=== PATIENT | female | born 1940 | race Caucasian/White ===

== ENCOUNTER → 2018-04-24 13:31 | Outpatient (CLI) | payer SELFPAY ==
--- NOTE | 2018-04-24 13:57 | RAD_ITS ---
STUDY: X-RAY CHEST REASON FOR EXAM: Female, 77 years old. Increasing shortness of breath on exertion. TECHNIQUE: PA and lateral views of the chest. COMPARISON: None. FINDINGS: PICC 3 there is no focal mass or infiltrate. There is no demonstrated pleural abnormality. Normal size heart. Normal mediastinum and sven. Normal visualized pulmonary arteries. There is atherosclerotic calcification of the aortic arch with tortuosity. There is mild degenerative changes of the thoracic spine. Normal visualized ribs, clavicles, and shoulders. There is no demonstrated abnormality of the visualized soft tissue structures of the upper abdomen. RAD/Chest PA and Lateral IMPRESSION: Probable COPD. Electronically Signed: Odilon Ortiz DO at 17:51 EDT Tel [phone], Service support ,
[2018-04-24 14:55] LABS: Absolute Lymphocyte Count 2.34 X10^3/ul (0.83-4.51); Absolute Neutrophil Count 3.6 X10^3/uL (2.0-7.7); Basophil# 0.06 X10^3/uL; Basophil% 0.8 % (0-1); Eosinophil# 0.43 X10^3/uL; Eosinophils% 6.1 % (0-5); Hematocrit 39.1 % (37-47); Hemoglobin 12.7 g/dl (12.0-15.0); Lymphocyte # 2.34 X10^3/ul (4.0); Lymphocyte % 33.1 % (19-41); Mean Corp Hgb Conc 32.5 g/gl (32-36); Mean Corpuscular Hgb 31.6 pg (27.0-32.0); Mean Corpuscular Volume 97.3 fL (81-99); Mean Platelet Vol. 10.8 fl (6.2-12.0); Monocyte# 0.66 X10^3/uL; Monocyte% 9.3 % (0-10); Neutrophil # 3.59 X10^3/uL (2.7-7.7); Neutrophil % 50.7 % (47-70); Platelet Count 251 K/mm3 (150-450); RBC Distribution Width CV 13.9 % (11.6-14.6); RBC Distribution Width SD 48.4 fl (35.1-43.9); Red Blood Count 4.02 M/mm3 (4.2-5.4); White Blood Count 7.1 K/mm3 (4.4-11.0)
[2018-04-24 14:59] LABS: POSITIVE COUNT NO; POSITIVE DIFFERENTIAL NO; POSITIVE MORPHOLOGY NO
[2018-04-24 15:12] LABS: Anion Gap 5 (5-15); BUN 34 mg/dL (7-18); BUN/Creat Ratio 31.2 RATIO (10-20); Calcium,Total 8.3 mg/dL (8.5-10.1); Chloride 108 mmol/L (98-107); Creatinine, Serum 1.09 mg/dL (0.55-1.02); EST Glomerular Filtration Rate 52 mL/min (>60); Est Glom Filt Rate - Afr Amer 63 mL/min (>60); Glucose 87 mg/dL (74-106); Potassium 4.5 mmol/L (3.5-5.1); Sodium Level 138 mmol/L (136-145)
[2018-04-24 15:18] LABS: BNP,B-Type NATRIURETIC PEPTIDE 52.5 pg/mL (0-100)
== END ==
PROVIDERS: Family Provider Internal Medicine; PCP Internal Medicine; Referring Provider Internal Medicine; Visit Provider Internal Medicine
DX: R06.09 Other forms of dyspnea (principal)
CPT/HCPCS: 36415; 71046; 80048; 83880; 85025

== ENCOUNTER 2018-06-26 07:37 | Day surgery (SDC) | payer SELFPAY ==
[2018-06-19 15:05] VITALS: BMI 27.7
--- NOTE | 2018-06-19 16:12 | HP_ITS ---
HPI HPI History of Present Illness Surgical H&P: Yes Details: This is a 77-year-old white female who presents today for outpatient cardiovascular consultation based on concerns of chest pain, shortness of breath/dyspnea, fatigue, 3 of an underlying cardiomyopathy aced upon an echocardiographic study performed in 2014, CHF , superimposed upon a history of underlying COPD. It appears that she has been undergoing evaluation in the past for multiple symptoms. Her chest pain is described as sharp in her chest. It comes and goes. It may occur at night. According to her daughter, who was at [facility] RN, she states that this can be sometimes relieved with antacid therapy. She also has shortness of breath and dyspnea. This is more prominent when she exerts herself especially with respect to going up any type of incline. However it is not uncommon, even on flat surfaces, after a period of time she will have to stop and rest to breathe. She has not had classic orthopnea or PND. Apparently she is had waxing and waning lower extremity peripheral pitting edema. She states that she is tired and fatigued. She notes that this may be even more concerning at times and her chest pain and her shortness of breath/dyspnea. She states that she still is able to clean her own home but this has to be done in the morning because by the time the afternoon, she is tired and fatigued and has to sit in her recliner. She also notes this symptom has been progressively getting worse over time. She did have an ECG today. She was noted to be in sinus rhythm. She had a leftward axis. She had a transthoracic echocardiogram performed at an outside hospital in September 2014. At that time according to the report the left ventricle was reported as mildly globally dysfunctional with an LVEF 45% with mild concentric LVH with findings of mild mitral annular calcification with mild diffuse mitral valve thickening and mild mitral valve prolapse of the posterior leaflet with mild mitral valve insufficiency, trivial TR, aortic valve sclerosis with trivial AI, trivial PA, and an estimated RV systolic pressure 20 mmHg. She had evidence of decreased diastolic compliance. She had a pharmacologic stress nuclear imaging study performed in October 2016. At that time according to reports she had no evidence of significant inducible ischemia or prior myocardial infarction with normal ejection fraction of greater than 70% with normal wall motion and breast tissue attenuation artifact noted. She states she is also been diagnosed with COPD. Apparently there have been PFTs performed in the past. She has not been evaluated by pulmonology. Intake Vital Signs 06/19/18 Height 5 ft 6 in 06/19/18 Weight: 172 lb 06/19/18 Body Mass Index (BMI) 27.7 06/19/18 Blood Pressure 128/72 H 06/19/18 Blood Pressure Location Lt brachial 06/19/18 Blood Pressure Position Sitting 06/19/18 Respiratory Rate 18 06/19/18 Pulse Rate 64 06/19/18 Pulse Source Auscultation Intake Visit Reasons: ABN EKG/Ref. [facility] [employer] Required: No Accompanied by: Daughter Allergies No Known Allergies Allergy (Unverified 06/19/18 15:06) Medications carvedilol 3.125 mg tablet 3.125 mg PO BID 06/13/18 [History Confirmed 06/19/18] furosemide 20 mg tablet 20 mg PO DAILY 06/13/18 [History Confirmed 06/19/18] lisinopril 5 mg tablet 5 mg PO DAILY 06/13/18 [History Confirmed 06/19/18] aspirin 81 mg tablet,delayed release 81 mg PO DAILY #30 tab 06/19/18 [Rx Confirmed 06/19/18] clopidogrel 75 mg tablet 75 mg PO DAILY #30 tab 06/19/18 [Rx Confirmed 06/19/18] PFSH Medical History CHF (congestive heart failure) (Acute) Asthma (Acute) COPD (chronic obstructive pulmonary disease) (Chronic) Surgical History History of breast surgery (Resolved) Family History Father CAD (coronary artery disease) Mother CHF (congestive heart failure) Brother Hypertension Heart disease Social History Smoking Status: Never smoker alcohol intake: never substance use type: does not use caffeine: Yes Type: coffee Number of servings: 1 ROS Const Const: Positive for fatigue; negative for weakness, frequent falls, excessive sweating, weight gain or weight loss Eyes Eyes: Negative for transient loss of vision, blurry vision or change in vision ENT ENT: Negative for dizziness or balance problems Cardio Chest Pain: Yes Character: sharp Location: mid sternal Duration: brief Palpitations: No Edema: Bilateral (occasional, mild) Muscle aches with walking: None Resp Respiratory: Positive for SOB with activity (baseline), SOB at rest (occasional) and Cough (dry) GI GI: Negative vomiting or vomiting blood/hematemesis : Negative for hematuria Musc Musc: Negative for muscle aches/ myalgia, muscle weakness, joint pain or balance problems Skin Skin: Negative non-healing lesions or rash Neuro Neuro: Positive for lightheadedness (occasional while up and about); negative for dizziness, orthostatic symptoms, frequent falls, weakness or blurry vision Srinivas Hematologic/Lymphatic: Negative for easy bleeding Endo Endo: Positive for fatigue; negative for excessive sweating Psych Psych: Negative for anxiety or depression Allergy Allergy/Immunology: Negative for hives, Negative for rash Cardiology Exam Const Appearance: cooperative, healthy appearing, comfortable, well developed and well groomed Nutritional Appearance: overweight Orientation: alert, awake and oriented x3 Head Head: normal to inspection, normocephalic and atraumatic Ears: hearing grossly normal bilaterally Nose: external nose normal Face and Sinus: face symmetric Mouth: oral mucosae normal Teeth and gingiva: fair dentition Eyes Eyelids: eyelids normal Conjunctivae: conjunctivae normal Pupils: PERRL EOM: EOM intact bilaterally Neck Neck: normal visual inspection and full ROM Carotids: normal carotid upstroke Chest Chest inspection: normal inspection of the chest, symmetric chest movement and normal respiratory effort Auscultation: Bilateral: Clear to Auscultation Cardio Palpation: normal PMI Rate: regular rate Rhythm: regular rhythm Heart sounds: S1 normal and S2 normal Murmur: Grade 2/6, soft, mid systolic, LLSB and LVOT GI GI: normal to inspection, soft and bowel sounds present Neuro General: alert, awake, oriented x3, gait normal and moves all extremities Skin Skin: no rashes or lesions noted Extremities Pulses: Normal: Right Radial Pulse, Left Radial Pulse Lower Extremity Edema: Trace: Bilateral Psych Psychological: normal affect Assessment & Plan 1. Chronic systolic congestive heart failure I50.22 Plan She has been diagnosed with CHF in the past. Based upon her echocardiogram this would be considered systolic mediated although there may be a combination of diastolic component and it appears to be chronic. She has not been reassessed since 2014 with a follow-up echocardiogram. She states she was placed on the medications listed above with respect to her beta-jody, diuretic, and KATIA inhibitor following her echocardiographic study. She does not appear to be acutely volume overloaded. She will have follow-up evaluation. This will include a follow-up transthoracic echocardiogram to reassess her ventricular wall motion and systolic function. 2. Cardiomyopathy, unspecified type I42.9 Plan Again she does have an underlying cardiomyopathy. The etiology is unclear as to whether this is coronary related or noncoronary related. Her pharmacologic stress nuclear imaging study would suggest this is noncoronary related. However she goes on with symptoms with chest discomfort, which is somewhat atypical, but more concerning her dyspnea on exertion and her marked fatigue. Thus at the present time she will continue medical therapy. Based upon the above clinical scenario it was felt she should be further evaluated at this time with respect to her underlying cardiovascular status from a more definitive standpoint with diagnostic cardiac catheterization. This could include a right/left cardiac cath based upon her symptoms, findings of a cardiomyopathy, etc. Depending upon her findings she may or may not need further cardiac versus noncardiac evaluation and care. Orders Orders: Left Heart Cath/COR/LV Percut Today Echo Complete Today Basic Metabolic Profile (BMP) Today Partial Thromboplast Time Today Prothrombin Time w/INR Today CBC W/Diff, Automated Today Thyroid Stim Hormone (TSH) Today Lipid Profile Today Liver Profile Today 3. Mitral valve disorder I05.9 Plan She does have a history of mitral valve prolapse/MR based on her previous echocardiographic studies. At the present time this will be reassessed with a follow-up transthoracic echocardiogram to look for any significant change will be contributing to her symptoms, etc. 4. Chest pain, unspecified type R07.9 Plan Her chest pain appears to be somewhat atypical. Her previous pharmacologic stress test appears to be unremarkable with respect of underlying CAD. However based upon her ongoing symptoms and her other concerns she will undergo more definitive evaluation with diagnostic cardiac catheterization as noted above. Orders Orders: Left Heart Cath/COR/LV Percut Today Echo Complete Today Basic Metabolic Profile (BMP) Today Partial Thromboplast Time Today Prothrombin Time w/INR Today CBC W/Diff, Automated Today Thyroid Stim Hormone (TSH) Today Lipid Profile Today Liver Profile Today 5. Dyspnea on exertion R06.09 Plan She does have marked dyspnea on exertion. Again there would be concern as to whether this is related to underlying CAD and/or LV systolic dysfunction. At the same time she is been diagnosed with valvular heart disease and has not been reassessed for any significant changes. She also has underlying COPD. Thus this may be a contribute in factor. At the present time she will continue her medical management. She will proceed with noninvasive and invasive evaluation as noted above from a cardiac standpoint. Depending upon her findings she may need further formal pulmonary evaluation as well. Orders Orders: Left Heart Cath/COR/LV Percut Today Echo Complete Today Basic Metabolic Profile (BMP) Today Partial Thromboplast Time Today Prothrombin Time w/INR Today CBC W/Diff, Automated Today Thyroid Stim Hormone (TSH) Today Lipid Profile Today Liver Profile Today 6. Fatigue, unspecified type R53.83 Plan She is fatigued. She states this may be the biggest concern she has. It is progressing and getting worse. She has been evaluated laboratory studies which were unremarkable for anemia, renal failure, or electrolyte dysfunction. Her daughter states she has had thyroid studies in the past which have been unremarkable. At the present time she will be further assessed with follow-up laboratory studies including thyroid function studies. She will also be asked to have the echocardiogram to reassess her ventricular wall motion and systolic function as well as her valvular heart disease. She will also undergo evaluation with diagnostic cardiac catheterization for the possibility of underlying CAD not being detected on her previous pharmacologic stress nuclear imaging study. Again depending upon her findings she may or may not need further cardiac versus noncardiac evaluation. Plan Detail Other Orders Orders: 12 Lead EKG performed by [facility] Today I50.9 Left Heart Cath/COR/LV Percut Today I50.9 Echo Complete Today I50.9 Basic Metabolic Profile (BMP) Today I50.9 Partial Thromboplast Time Today I50.9 Prothrombin Time w/INR Today I50.9 CBC W/Diff, Automated Today I50.9 Thyroid Stim Hormone (TSH) Today I50.9 Lipid Profile Today I50.9 Liver Profile Today I50.9 Other Medications New: aspirin 81 mg PO DAILY 30 tabs 3RF clopidogrel (Plavix) 75 mg PO DAILY 30 tabs 3RF Additional Comments The cardiac catheterization procedure with respect risks and benefits were discussed with the patient as well. Again she was agreeable to this approach. The above was discussed with the patient's daughter who was present. She was agreeable to this approach as well. Thank you for allowing me to participate in the care of your patient. Please don't hesitate to call if any issues arise. This note was generated using a voice recognition system and there may be incorrect words, spelling or punctuation that were not noted when reviewing the office note prior to saving. Follow Up 3 Months (PFM) Coding Level of Care Code Off vis,new,level 5 Diagnoses Chronic systolic congestive heart failure I50.22 ??Heart failure type: systolic ??Heart failure chronicity: chronic Cardiomyopathy, unspecified type I42.9 ??Cardiomyopathy type: unspecified Mitral valve disorder I05.9 Chest pain, unspecified type R07.9 ??Chest pain type: unspecified Dyspnea on exertion R06.09 Fatigue, unspecified type R53.83 ??Fatigue type: unspecified Coding Level of Care Code Off vis,new,level 5 Diagnoses Chronic systolic congestive heart failure I50.22 ??Heart failure type: systolic ??Heart failure chronicity: chronic Cardiomyopathy, unspecified type I42.9 ??Cardiomyopathy type: unspecified Mitral valve disorder I05.9 Chest pain, unspecified type R07.9 ??Chest pain type: unspecified Dyspnea on exertion R06.09 Fatigue, unspecified type R53.83 ??Fatigue type: unspecified Supplemental Info Supplemental Information Diagnostics Electrocardiogram 06/19/18 Chest X-Ray 04/24/18 06/19/18 1612 <Electronically signed by Slava Leyva MD> Date Slava Leyva MD I have re-examined the patient. There are no clinical changes since date of exam.
[2018-06-25 11:04] VITALS: BMI 27.7
[2018-06-26 09:31] LABS: Base Excess -4 mmol/L (-2 to +2); Bicarbonate 20.4 mmol/L (22-26); Blood Gas Specimen Type ART; PO2 78 mmHG (75-100); SO2 96 % (95-99); Total Carbon Dioxide 21 mmol/L; pCO2 33.1 mmHg (35-45)
[2018-06-26 09:31] LABS: Blood Gas Specimen Type VEN; VBG BASE EXCESS -3 mmol/L (-1.0-3.5); VBG Bicarbonate 22 mmol/L (22-26); VBG Oxygen Content 24 mmol/L (23-33); VBG PO2 40 mmHg (25-40); VBG SO2 73 % (50-70); VBG pCO2 39.7 mmHg (41-51); VBG pH 7.36 (7.32-7.42)
[2018-06-26 09:31] LABS: Blood Gas Specimen Type VEN; VBG BASE EXCESS -3 mmol/L (-1.0-3.5); VBG Bicarbonate 23 mmol/L (22-26); VBG Oxygen Content 24 mmol/L (23-33); VBG PO2 39 mmHg (25-40); VBG SO2 70 % (50-70); VBG pH 7.35 (7.32-7.42)
[2018-06-26 09:31] LABS: Blood Gas Specimen Type VEN; VBG BASE EXCESS -3 mmol/L (-1.0-3.5); VBG Bicarbonate 23 mmol/L (22-26); VBG Oxygen Content 24 mmol/L (23-33); VBG PO2 45 mmHg (25-40); VBG SO2 80 % (50-70); VBG pCO2 39.2 mmHg (41-51); VBG pH 7.37 (7.32-7.42)
--- NOTE | 2018-06-26 09:49 | CL.D_ITS ---
Patient Name: NATALY MARTINEZ Study Date: 06/26/2018 Performing: Slava Leyva MD Ht: 66.14 inches 168 cm : 1940 Wt: 171.96 lbs 78 kg Age: 77 Gender: female BSA: 1.88 PROCEDURE(S) PERFORMED CT56-HAF/LHC/COR/LV CLINICAL PROFILE AND INDICATIONS Indications: Valvular Disease, LV Dysfunction, Cardiomyopathy Heart Failure: NYHA Class: 3, Newly Diagnosed: No, Heart Failure Type: Systolic Stress/Imaging Stress/Image Study Performed: No Angina Classification Anginal Classification w/in 2 Weeks: CCS III CAD Presentations: Other: shortness of breath / dyspnea on exertion CONCLUSIONS Right heart pressures - mildly elevated The patient has pulmonary hypertension which is mild. Intracardiac shunting: None Elevated Left Ventricular End Diastolic Pressure Normal LV size, wall motion,and systolic function LVEF: by LV gram 55 % Normal coronary arteries RECOMMENDATIONS Risk factor modification Medical therapy DESCRIPTION OF PROCEDURE The patient arrived to the procedure lab. The risks and benefits of the procedure as well as a full d escription of our services here and current unavailability of surgical backup were fully explained to the patient and/or their significant other prior to the catheterization. The Timeout was completed, verifying the correct patient and procedure. The patient's procedural site was prepped and draped in the usual fashion. Local anesthetic was given subcutaneously to right groin region with Lidocaine 2%. Using a modified Seldinger technique, arterial access was obtained via the right femoral artery, a 4 Fr sheath was inserted Venous access was obtained via the right femoral vein, a 7Fr sheath was insert ed. A 7Fr thermal dilution catheter was inserted and right heart pressures were recorded, it was then advanced to PA position for cardiac outputs. Thermal dilution cardiac outputs were then recorded. O2 saturations were then obtained. Simultaneous pressures were then recorded. Left Ventriculography was performed in ALEXANDER projection using a 4 Fr. Pigtail catheter. LV to AO pullback pr essures were then recorded. The Thermal dilution catheter was then removed. Left Coronary Artery jaqueline ctive angiography was performed in multiple views using a 4 Fr. JL5 catheter. Right Coronary Artery s elective angiography was then performed in multiple views using a 4 Fr. 3DRC catheter.The arterial sh eath was pulled and manual compression applied until hemostasis is achieved.. The venous sheath was t hen pulled and manual compression applied until hemostasis achieved CORONARY ANGIOGRAPHY DOMINANCE: Right Dominant LEFT HEART ASSESSMENT Left Ventricular Ejection Fraction: by LV Gram 55 % Normal LV wall motion Elevated Left Ventricular End Diastolic Pressure LVEDP: 28 mmHg RIGHT HEART ASSESSMENT Thermal CO: 5.44 Thermal CI: 2.89 Denys CO: 8.77 Denys CI: 4.66 PW: 13/11 10 PA: 33/13 22 RV: 37/3 9 RA: 10/17 5 PVR: 176 SVR: 1632 Aortic Valve Area: >3.50 Aortic Valve Index: 1.86 Aortic Valve Mean Gradient: 4.3 Mitral Valve Area: 3.40 Mitral Valve index: 1.81 Mitral Valve Mean Gradient: 10 Right Heart pressures - elevated Pulmonary Hypertension Mild Intracardiac shunting: None LEFT MAIN: Angiographically normal LEFT ANTERIOR DESCENDING ARTERY: Angiographically normal CIRCUMFLEX ARTERY: Angiographically normal RIGHT CORONARY ARTERY: Angiographically normal VALVE FINDINGS: Normal Aortic Valve function Normal Mitral Valve function AORTIC ROOT: Angiographically normal COMPLICATIONS No Complications PROCEDURE MEDICATIONS Versed 1 mg IV SUMMARY OF HEMODYNAMIC DATA Time AIR REST ECG 08:26:07 RA 10/17 (5) SV 09:07:43 RV 37/3, 9 09:08:04 PW 13/11 (10) PV 09:09:15 PA 33/13 (22) PA 09:09:29 LV 178/-2, 26 09:15:40 PW 19/16 (14) 09:15:40 LV 177/11, 28 09:17:22 PW 17/19 (16) 09:17:22 LV 178/12, 27 09:17:34 LV 179/10, 27 09:17:40 LVp 179/9, 26 09:17:46 AOp 181/84 (125) 09:17:51 PA 41/16 (27) 09:18:13 RV 43/5, 12 09:18:29 RA 01/19 (8) 09:18:44 AO 174/78 (116) SA 09:21:08 09:48:26 Valve Area (c P-P/ms Time AIR REST Mitral 3.39 10.0 mn/160 ms 09:15:40 Aortic 3.50 4.3 mn/98 ms 09:17:46 Type SV CO (l/m) CI (l/m/ HR Time AIR REST Thermal 87.70 5.44 2.89 62 08:26:07 Denys 141.50 8.77 4.66 62 08:26:07 Label % O2 Pres/Loc Time AIR REST AO 96 PV 09:22:20 PA 73 PA 09:22:27 SVC 70 09:22:32 IVC 80 SV 09:22:35 Signed By Slava Leyva MD On 06/26/2018 9:48:36 AM Slava Leyva MD
== END 2018-06-26 14:10 | disposition home or self-care (01) ==
PROVIDERS: Family Provider Internal Medicine; PCP Internal Medicine; Referring Provider Internal Medicine Cardiovascular Disease; Visit Provider Internal Medicine Cardiovascular Disease
DX: I50.22 Chronic systolic (congestive) heart failure (principal); I42.9 Cardiomyopathy, unspecified; I05.9 Rheumatic mitral valve disease, unspecified; R07.89 Other chest pain; R06.09 Other forms of dyspnea; J44.9 Chronic obstructive pulmonary disease, unspecified; R53.83 Other fatigue; I27.20 Pulmonary hypertension, unspecified; Z79.82 Long term (current) use of aspirin; Z79.899 Other long term (current) drug therapy; Z82.49 Family history of ischemic heart disease and other diseases of the circulatory system
CPT/HCPCS: 82803; 93460; 99152; 99153; J7040; Q9967; A4216; C1751; C1769; C1894

== ENCOUNTER → 2018-07-04 12:56 | Outpatient (CLI) | payer SELFPAY ==
[2018-06-19 15:05] VITALS: BMI 27.7
[2018-06-25 11:04] VITALS: BMI 27.7
--- NOTE | 2018-07-04 13:01 | ECHOD_ITS ---
Reason For Study: CHEST PAIN Procedure This was a 2D Doppler, Color Flow transthoracic echocardiogram. The study was technically difficult. Exam performed in department. Left Ventricle Normal LV size. Left ventricular systolic function is normal. The estimated ejection fraction is 60 %. Diastolic function is indeterminate. No regional wall motion abnormalities noted. Right Ventricle Normal RV size. Normal systolic function. Atria The left atrium is mildly enlarged. Normal right atrium. No doppler evidence for ASD. Bubble contrast study negative for right to left interatrial shunt. Mitral Valve There is no mitral annular calcification. Normal mitral valve. Trivial mitral valve insufficiency. Tricuspid Valve Normal tricuspid valve. Trivial tricuspid valve insufficiency. Right ventricular systolic pressure estimated to be 29 mmHg. Aortic Valve Trisinus/trileaflet aortic valve. Mild focal aortic valve thickening. Pulmonic Valve The pulmonic valve is not well visualized. Great Vessels Normal sized aortic root. Pericardium/Pleural No pericardial effusion. Medication 22 gauge I.V. with prn adaptor inserted into right arm. Performed a rapid injection of agitated mix of 9 cc saline and 1cc air to assess for atrial septal defect. MMode/2D Measurements & Calculations LVIDd: 3.5 cm IVSd: 1.0 cm Ao root diam: 3.3 cm LVIDs: 2.5 cm LVPWd: 1.1 cm FS: 29.0 % LAV(MOD-bp): 39.8 ml LVAd ap4: 23.1 cm2 SV(MOD-sp4): 39.6 ml LAV(MOD-bp) Indexed: 21.2 ml/m2 EDV(MOD-sp4): 64.6 ml LAV(MOD-sp2): 43.4 ml EDV(sp4-el): 68.7 ml LAV(MOD-sp4): 33.0 ml LVAs ap4: 12.8 cm2 ESV(MOD-sp4): 25.0 ml ESV(sp4-el): 25.4 ml EF(MOD-sp4): 61.3 % EF(sp4-el): 63.0 % SV(sp4-el): 43.3 ml LA A4 area: 13.6 cm2 LA dimension(2D): 2.8 cm RA A4 area: 8.6 cm2 Time Measurements MV dec time: 0.34 sec Doppler Measurements & Calculations MV E max daron: 68.6 cm/sec Lat Peak E' Daron: 5.2 cm/sec Med Peak E' Daron: 6.0 cm/sec MV A max daron: 100.9 cm/sec E/E' lat: 13.3 E/E' med: 11.4 MV E/A: 0.68 Ao V2 max: 132.8 cm/sec LV V1 max: 132.3 cm/sec PA V2 max: 89.4 cm/sec Ao max P.1 mmHg LV V1 max P.0 mmHg TR max daron: 255.6 cm/sec TR max P.2 mmHg Interpretation Summary The study was technically difficult. Left ventricular systolic function is normal. The estimated ejection fraction is 60 %. The left atrium is mildly enlarged. Trivial mitral valve insufficiency. Trivial tricuspid valve insufficiency. Mild focal aortic valve thickening. Right ventricular systolic pressure estimated to be 29 mmHg. Diastolic function is indeterminate. Ordering Physician: Slava Leyva Referring Physician: TRACI JEFFERY Performed By: Bell Steinberg RDCS
== END ==
PROVIDERS: Family Provider Internal Medicine; PCP Internal Medicine; Referring Provider Internal Medicine Cardiovascular Disease; Visit Provider Internal Medicine Cardiovascular Disease
DX: R07.9 Chest pain, unspecified (principal); R06.09 Other forms of dyspnea; I42.9 Cardiomyopathy, unspecified; I50.9 Heart failure, unspecified
CPT/HCPCS: 93306; A4216

== ENCOUNTER 2022-02-19 08:28 | Inpatient (IN) | payer OTHER, SELFPAY ==
[2022-02-19] VITALS (12 sets, daily range): BP systolic 125–166; BP diastolic 69–89; PULSE 59–138; RESP 14–20; TEMP 36.4–36.8; O2SAT 96–98; BMI 27.8; BMI 28.0
--- NOTE | 2022-02-19 08:32 | EDS_ITS ---
HPI History of Present Illness Chief Complaint: Stroke Alert Narrative Narrative: 81-year-old female here with acute onset of right upper extremity weakness and numbness started approximately 7:05 AM, 1 hour and 20 minutes prior to arrival. Patient denies falls. Denies blood thinning medicines, denies history of stroke. [facility] Medical History Asthma CHF (congestive heart failure) COPD (chronic obstructive pulmonary disease) Status post left heart catheterization (LHC) (~06/26/18) Home Medications carvedilol 3.125 mg tablet 3.125 mg PO BID heart 06/13/18 [History Last Taken 02/19/22] furosemide 20 mg tablet 20 mg PO DAILY fluid 06/13/18 [History Last Taken 02/19/22] lisinopril 5 mg tablet 5 mg PO DAILY blood pressure 06/13/18 [History Last Taken 02/18/22] acetaminophen 500 mg tablet 500 mg PO DAILY PRN Pain 02/19/22 [History Last Taken Unknown] aspirin 81 mg tablet,delayed release 162 mg PO DAILY PRN heart health 02/19/22 [History Last Taken 02/19/22] Allergy/AdvReac Type Severity Reaction Status Date / Time No Known Allergies Allergy Unverified 06/19/18 15:06 Family History Father CAD (coronary artery disease) Mother CHF (congestive heart failure) Brother Hypertension Heart disease Surgical History History of breast surgery Social History (Updated 06/19/18 @ 16:[address] Slava Leyva MD) Smoking Status: Never smoker alcohol intake: never substance use type: does not use caffeine: Yes Type: coffee Number of servings: 1 ROS ROS ED ROS Narrative Constitutional: Denies fever HEENT: Denies sore throat Neck: Denies neck pain Cardiovascular: Denies chest pain, syncope Respiratory: Denies shortness of breath GI: Denies nausea vomiting or abdominal pain : Denies changes in urinary habits Musculoskeletal: Denies muscle or joint pain Neurologic: Denies numbness weakness or loss of sensation Skin denies rash EXAM Physical Exam Narrative Exam Narrative: Nursing triage notes reviewed, Vital signs reviewed Constitutional: please see mdm HENT: MMM Eyes: Pupils equal round and reactive to light, Extraocular muscles intact Neck: No stridor, no JVD, full neck ROM Lungs: Clear to auscultation, No wheezing or rales. No increased work of breathing, no conversational dyspnea, no accessory muscle use, no nasal flaring. No respiratory distress noted Heart: Regular rate and rhythm, No murmurs, No rubs and No gallops, 2+ distal pulses (radial, femoral, posterior tibial) in all extremities Abdomen: Soft, there is no tenderness, rigidity, rebound or guarding, no obvious peritoneal signs, no palpable pulsatile abdominal masses, no auscultated abdominal bruit : No CVAT Extremities: No edema Neuro: Not at baseline, cranial nerves II through XII intact, weakness in the right upper extremity with pronator drift, decree sensation right upper extremity. No other sensory or motor deficits noted. No slurred speech or facial drooping. Patient was alert and orient x3 and follow commands. Initial NIH of 2 (right upper arm drift, decreased sensation right upper arm) Skin: No rash or lesions noted Const Vital Signs: 02/19/22 08:30 02/19/22 08:49 02/19/22 08:51 Temperature 98.1 F Temperature Source Temporal Pulse Rate 81 116 H 138 H Respiratory Rate 16 20 H 20 H Blood Pressure 166/89 H 135/89 H 135/89 H Blood Pressure Mean 114 104 104 Blood Pressure Source Blood Pressure Position Blood Pressure Location Pulse Ox 97 96 96 Oxygen Delivery Method Room Air Room Air Room Air 02/19/22 09:19 02/19/22 09:19 02/19/22 09:39 Temperature Temperature Source Pulse Rate 73 62 Respiratory Rate 17 14 Blood Pressure 127/71 H 125/76 H Blood Pressure Mean 89 92 Blood Pressure Source Blood Pressure Position Blood Pressure Location Pulse Ox 97 96 96 Oxygen Delivery Method Room Air Room Air Room Air 02/19/22 10:03 02/19/22 10:04 02/19/22 10:04 Temperature 97.6 F L Temperature Source Temporal Pulse Rate 59 L 59 L Respiratory Rate 18 16 18 Blood Pressure 138/73 H 138/73 H Blood Pressure Mean 94 94 Blood Pressure Source Blood Pressure Position Blood Pressure Location Pulse Ox 96 96 Oxygen Delivery Method Room Air Room Air 02/19/22 10:15 Temperature 98.2 F Temperature Source Temporal Pulse Rate 69 Respiratory Rate 20 H Blood Pressure 159/89 H Blood Pressure Mean 112 Blood Pressure Source Monitor Blood Pressure Position Semi-Fowlers Blood Pressure Location Left Arm Pulse Ox 96 Oxygen Delivery Method Room Air MDM MDM MDM Narrative Medical decision making narrative: Chief Complaint: Right upper extremity weakness External records reviewed: No recent advanced imaging of the brain I considered: CVA, ICH, hypoglycemia, seizure or postictal state, conversion disorder Patient presented with acute right arm weakness and decrease in station the right arm, initial NIH of 2 within the stroke window with a last known well approximately hour 20 minutes prior to arrival at 7:05 AM. Exam done within minutes of ED arrival taken to CT immediately. [id number] glucose obtained and is reassuring. CT scan showed no acute bleed. Discussed with radiologist. Discussed with stroke neurologist as well. Patient's symptoms on the stroke neurologist evaluation were improving had repeat NIH of 1 with very slight drift in right upper extremity. We decided with shared decision-making with the patient and family to forego tPA for now. We will admit the patient for telemetry, risk factor modification MRI as well as neurology consultation as soon as labs and images are final. Factors affecting care: History of COPD, CHF Social determinants of health: Elderly, poor medical knowledge Shared decision making: I will have a discussion with the patient and or visitors regarding risk/benefits of further testing or admission. They will be made aware of of the risk/benefits inherent in this decision they will be given the opportunity to voice understanding. Consults: Stroke neurology recommended against tPA, recommended admission for risk factor modification. Lab Data Attestation: I reviewed the patient's lab results. Lab results narrative: CBC with no leukocytosis, mild anemia, no thrombocytopenia No coagulopathy within normal PT, INR and PTT BMP without significant electrolyte abnormalities, anion gap or acute kidney injury Troponin unremarkable for myocardial ischemia Labs: Laboratory Results - last 24 hr 02/19/22 02/19/22 02/19/22 08:46 08:46 08:46 WBC 5.9 RBC 3.72 L Hgb 11.8 L Hct 35.3 L MCV 94.9 MCH 31.7 MCHC 33.4 RDW Std Deviation 48.4 H RDW Coeff of Bettye 13.9 Plt Count 231 MPV 10.2 Immature Gran % (Auto) 0.300 Neut % (Auto) 55.8 Lymph % (Auto) 27.3 [place] % (Auto) 13.0 H Eos % (Auto) 2.9 Baso % (Auto) 0.7 Absolute Neuts (auto) 3.3 Absolute Lymphs (auto) 1.62 Nucleated RBC % 0 PT 13.8 INR 1.1 APTT 28.1 Sodium 137 Potassium 3.9 Chloride 102 Carbon Dioxide 28.0 Anion Gap 7 BUN 17 Creatinine 0.89 Estim Creat Clear Calc 46.41 Est GFR (MDRD) Af Amer 78 Est GFR (MDRD) Non-Af 65 BUN/Creatinine Ratio 19.1 Glucose 103 Calcium 8.1 L Troponin I High Sens 6 POC Glucose 02/19/22 08:47 WBC RBC Hgb Hct MCV MCH MCHC RDW Std Deviation RDW Coeff of Bettye Plt Count MPV Immature Gran % (Auto) Neut % (Auto) Lymph % (Auto) [place] % (Auto) Eos % (Auto) Baso % (Auto) Absolute Neuts (auto) Absolute Lymphs (auto) Nucleated RBC % PT INR APTT Sodium Potassium Chloride Carbon Dioxide Anion Gap BUN Creatinine Estim Creat Clear Calc Est GFR (MDRD) Af Amer Est GFR (MDRD) Non-Af BUN/Creatinine Ratio Glucose Calcium Troponin I High Sens POC Glucose 103 Radiography Diagnostic Testing: Clinical Impression(s) from Imaging Studies Brain CT 02/19/22 08:33 IMPRESSION: Chronic involutional changes of the brain. N.B. : The above Results were Read Back by Best Singh MD to [place] [place] and understanding confirmed on 02/19/2022 08:48:08 (ET). Electronically Signed: Best Singh MD at 8:49 EST , ADDENDUM: 02/19/22 0856 IMPRESSION: Chronic involutional changes of the brain. N.B. : The above Results were Read Back by Best Singh MD to [place] [place]OCK and understanding confirmed on 02/19/2022 08:48:08 (ET). Electronically Signed: Best Singh MD at 8:49 EST , Chest X-Ray 02/19/22 08:33 IMPRESSION: Stable mild increased markings at the lung bases as well as at the lung apices suggestive of scarring. Electronically Signed: Best Singh MD at 10:05 EST Reading Location ID and State: [facility] / [place] , Service support , Head/Neck CTA 02/19/22 08:34 IMPRESSION: Calcific N.B. : The above Results were Read Back by Best Singh MD to [place] [place] and understanding confirmed on 02/19/2022 09:06:30 (ET). Electronically Signed: Best Singh MD at 9:07 EST Reading Location ID and State: [facility] / [place] , Service support , ADDENDUM: 02/19/22 0914 IMPRESSION: Calcific N.B. : The above Results were Read Back by Best Singh MD to [place] [place] and understanding confirmed on 02/19/2022 09:06:30 (ET). Electronically Signed: Best Singh MD at 9:07 EST Reading Location ID and State: [facility] / [place] , Service support , Chest x-ray was personally viewed by myself shows no evidence of pulmonary edema, pneumonia EKG Initial EKG: Attestation: I personally reviewed and interpreted this EKG as follows: Comments: EKG with normal sinus rhythm, left ax deviation, prolonged QT interval, no obvious STEMI, no atrial fibrillation Discharge Plan Disposition Disposition: Acute Care [facility]
--- NOTE | 2022-02-19 08:33 | EKG12_ITS ---
Test Reason : STROKE TEAM Blood Pressure : / mmHG Vent. Rate : 077 BPM Atrial Rate : 070 BPM P-R Int : 170 ms QRS Dur : 084 ms QT Int : 438 ms P-R-T Axes : 039 -15 078 degrees QTc Int : 495 ms Sinus rhythm with frequent and consecutive Premature ventricular complexes ST & T wave abnormality, consider lateral ischemia Prolonged QT Abnormal ECG Confirmed by ANEESH PAGE, HOWARD ([id number]), advertising editor SHILOH TUCKER ([id number]) on 02/21/2022 10:36:18 AM Referred By: Confirmed By:HOWARD MELENDREZ MD
--- NOTE | 2022-02-19 08:33 | RAD_ITS ---
STUDY: X-RAY CHEST REASON FOR EXAM: Female, 81 years old. Neuro deficit, acute, stroke suspected TECHNIQUE: Single AP portable view of the chest. COMPARISON: Comparison is made with prior examination dated 04/24/2018. FINDINGS: EKG electrodes are seen. Stable mild increased markings at the lung bases as well as the lung apices suggests a mild degree of scarring. There is no demonstrated pleural abnormality. Normal size heart. Normal mediastinum and sven. Normal visualized pulmonary arteries. There is atherosclerotic calcification of the aortic arch with tortuosity. Normal visualized thoracic spine. Normal visualized ribs, clavicles, and shoulders. There is no demonstrated abnormality of the visualized soft tissue structures of the upper abdomen. RAD/Chest 1 View IMPRESSION: Stable mild increased markings at the lung bases as well as at the lung apices suggestive of scarring. Electronically Signed: Best Singh MD at 10:05 EST ,
--- NOTE | 2022-02-19 08:33 | CT_ITS ---
STUDY: CT HEAD STROKE PROTOCOL W/O CONTRAST INJECTION REASON FOR EXAM: Female, 81 years old. Neuro deficit, acute, stroke suspected RADIATION DOSAGE (If Supplied By Facility): CTDIvol = ( 47.06 ) mGy, DLP = ( a 55.03 ) mGycm TECHNIQUE: Transaxial CT imaging of the brain was performed without administration of intravenous contrast material. Individualized dose optimization techniques were used for this CT. COMPARISON: No relevant priors. FINDINGS: Normal soft tissue structures. Normal calvarium. There is mild cerebral atrophy with widening of the extra-axial spaces and ventricular dilatation. There are areas of decreased attenuation within the white matter tracts of the supratentorial brain, consistent with microvascular disease changes. There are small punctate calcifications of the basal ganglia which are seen in the aging brain as a normal variant. Normal brainstem. Normal cerebellum. There is no intracranial hemorrhage. There are no findings of an acute ischemic infarction. Atherosclerotic plaque formation of the cavernous portions of the internal carotid arteries bilaterally. Partial opacification of the ethmoid sinuses. ASPECT score: 10 CT/STROKE Brain/Head without Cont IMPRESSION: Chronic involutional changes of the brain. N.B. : The above Results were Read Back by Best Singh MD to [facility] and understanding confirmed on 02/19/2022 08:48:08 (ET). Electronically Signed: Best Singh MD at 8:49 EST ,
--- NOTE | 2022-02-19 08:34 | CT_ITS ---
STUDY: CTA HEAD AND NECK WITH CONTRAST REASON FOR EXAM: Female, 81 years old. Neuro deficit, acute, stroke suspected RADIATION DOSAGE (If Supplied By Facility): CTDIvol = ( 19.74 ) mGy, DLP = ( 835.94 ) mGycm TECHNIQUE: CT angiography was performed with a multi-detector CT scanner. Data acquisition was obtained from the skull base through the vertex following intravenous administration of IV 100mL [id number]. MIP images were reconstructed from the axial data set. Post-processing of the angiographic images was performed, with multiplanar reformation and 3D reconstruction. Individualized dose optimization techniques were used for this CT. COMPARISON: No relevant priors. FINDINGS: Normal bilateral petrous carotid arteries. There is calcified plaque formation of the right cavernous carotid artery, without a cross-sectional luminal stenosis. There is calcified plaque formation of the left cavernous carotid artery, with a mild stenosis (less than 50%). Normal right A1 segments of the anterior cerebral artery. Normal left A1 segments of the anterior cerebral artery. Normal intact anterior communicating artery (ACOM). Normal bilateral A2 segments of the anterior cerebral arteries. Normal right M1 and M2 segments of the middle cerebral arteries, with a normal M1 bifurcation. Normal left M1 and M2 segments of the middle cerebral arteries, with a normal M1 bifurcation. Normal right posterior communicating artery (PCOM). Normal left posterior communicating artery (PCOM). Normal bilateral vertebral arteries. Normal basilar artery with a normal basilar bifurcation. The visualized bilateral superior cerebellar (SCA) arteries are normal. Normal bilateral P1, P2 and visualized P3 segments of the posterior cerebral arteries. There is no demonstrated aneurysm of the [place]. AORTIC ARCH: There is atherosclerotic calcific plaque formation of the aortic arch and great vessels arising from the aortic arch, without a hemodynamically significant stenosis. There is a normal origin of the brachiocephalic, left common carotid, and left subclavian arteries. RIGHT CAROTID ARTERIES: Normal right common carotid artery (CCA). Normal right common carotid bulb. There is mild atherosclerotic plaque formation of the origin of the right internal carotid artery with less than 50% cross sectional diameter stenosis. Normal visualized cervical portion of the right internal carotid artery. Normal origin of the right external carotid artery (ECA). LEFT CAROTID ARTERIES: Normal left common carotid artery (CCA). Normal left common carotid bulb. There is extensive atherosclerotic plaque formation of the origin of the left internal carotid artery with an estimated stenosis of greater than 70%. Normal visualized cervical portion of the left internal carotid artery. Normal origin of the left external carotid artery (ECA). VERTEBRAL ARTERIES: Greater than 70% narrowing at the origin of the left internal carotid artery. Less than 50% narrowing at the origin of the right internal carotid artery. CT/STROKE CTA Head AND Neck W/Con IMPRESSION: Calcific N.B. : The above Results were Read Back by Best Singh MD to [place] [place] and understanding confirmed on 02/19/2022 09:06:30 (ET). Electronically Signed: Best Singh MD at 9:07 EST ,
[2022-02-19 08:59] LABS: Absolute Lymphocyte Count 1.62 X10^3/uL (0.83-4.51); Absolute Neutrophil Count 3.3 X10^3/uL (2.0-7.7); Basophil# 0.04 X10^3/uL; Basophil% 0.7 % (0-1); Eosinophil# 0.17 X10^3/uL; Eosinophils% 2.9 % (0-5); Hematocrit 35.3 % (37-47); Hemoglobin 11.8 g/dL (12.0-15.0); Lymphocyte # 1.62 X10^3/ul (0.83-4.51); Lymphocyte % 27.3 % (19-41); Mean Corp Hgb Conc 33.4 g/dL (32-36); Mean Corpuscular Hgb 31.7 pg (27.0-32.0); Mean Corpuscular Volume 94.9 fL (81-99); Mean Platelet Vol. 10.2 fl (6.2-12.0); Monocyte# 0.77 X10^3/uL; NRBC Flagged by Analyzer 0 % (0-5); Neutrophil # 3.32 X10^3/uL (2.7-7.7); Neutrophil % 55.8 % (47-70); Platelet Count 231 K/mm3 (150-450); RBC Distribution Width CV 13.9 % (11.6-14.6); RBC Distribution Width SD 48.4 fl (35.1-43.9); Red Blood Count 3.72 M/mm3 (4.2-5.4); White Blood Count 5.9 K/mm3 (4.4-11.0)
[2022-02-19 09:06] LABS: Partial Thromboplast Time 28.1 Seconds (24.1-36.2)
[2022-02-19 09:10] LABS: Bedside Glucose 103 mg/dL (74-106)
[2022-02-19 09:14] LABS: Anion Gap 7 (5-15); BUN 17 mg/dL (7-18); BUN/Creat Ratio 19.1 RATIO (10-20); Calcium,Total 8.1 mg/dL (8.5-10.1); Chloride 102 mmol/L (98-107); Creatinine, Serum 0.89 mg/dL (0.55-1.02); EST Glomerular Filtration Rate 65 mL/min (>60); Est Glom Filt Rate - Afr Amer 78 mL/min (>60); Estimated Creatinine Clearance 46.41 ml/min; Glucose 103 mg/dL (74-106); Potassium 3.9 mmol/L (3.5-5.1); Sodium Level 137 mmol/L (136-145); Troponin-I HS 6 pg/mL (3.0-54.0)
[2022-02-19 09:21] LABS: International Normalized Ratio 1.1; Prothrombin Time (Protime)PT. 13.8 SECONDS (11.7-14.9)
--- NOTE | 2022-02-19 10:37 | ECHOD_ITS ---
Reason For Study: TIA/Stroke Procedure This was a 2D Doppler, Color Flow transthoracic echocardiogram. Exam performed portable in patient room. Left Ventricle Normal LV size. Mild concentric left ventricular hypertrophy. Left ventricular systolic function is normal. The estimated ejection fraction is 60 %. No regional wall motion abnormalities noted. Right Ventricle Normal RV size. Normal systolic function. Atria Normal left atrium. Normal right atrium. Mitral Valve Bileaflet diffuse mitral valve thickening. Mild (1+) eccentric mitral valve insufficiency. Tricuspid Valve Normal tricuspid valve. Aortic Valve Normal aortic valve. Trisinus/trileaflet aortic valve. Pulmonic Valve Normal pulmonic valve. Great Vessels Normal aortic root. The pulmonary artery is normal size. Normal inferior vena cava. Pericardium/Pleural No pericardial effusion. MMode/2D Measurements & Calculations LVIDd: 2.8 cm IVSd: 1.3 cm Ao root diam: 2.6 cm LVIDs: 2.0 cm LVPWd: 1.3 cm RVDd: 2.9 cm FS: 27.4 % LAV(MOD-bp): 41.0 ml LVAd ap4: 22.1 cm2 SV(MOD-sp4): 35.6 ml LAV(MOD-bp) Indexed: 22.1 ml/m2 LVLd ap4: 6.9 cm LAV(MOD-sp2): 49.0 ml EDV(MOD-sp4): 56.4 ml LAV(MOD-sp4): 29.7 ml EDV(sp4-el): 60.7 ml LVAs ap4: 12.2 cm2 LVLs ap4: 5.7 cm ESV(MOD-sp4): 20.8 ml ESV(sp4-el): 22.1 ml EF(MOD-sp4): 63.1 % EF(sp4-el): 63.6 % SV(sp4-el): 38.6 ml LA A4 area: 13.1 cm2 LA dimension(2D): 3.3 cm RA A4 area: 15.0 cm2 Doppler Measurements & Calculations MV E max daron: 46.5 cm/sec Lat Peak E' Daron: 6.2 cm/sec Med Peak E' Daron: 5.4 cm/sec MV A max daron: 98.2 cm/sec E/E' lat: 7.5 E/E' med: 8.6 MV E/A: 0.47 Ao V2 max: 129.4 cm/sec LV V1 max: 123.4 cm/sec PA V2 max: 77.5 cm/sec Ao max P.7 mmHg LV V1 max P.1 mmHg Ao V2 mean: 95.2 cm/sec Ao mean P.9 mmHg Ao V2 VTI: 26.9 cm TR max daron: 251.3 cm/sec TR max P.3 mmHg ECHO/Echo Complete Interpretation Summary Normal LV size. Mild concentric left ventricular hypertrophy. Left ventricular systolic function is normal. The estimated ejection fraction is 60 %. Bileaflet diffuse mitral valve thickening. Mild (1+) eccentric mitral valve insufficiency. Ordering Physician: Trina Lehman Referring Physician: Shiv Bellamy Performed By: Deb Wolf, MARIANNA, RVT
--- NOTE | 2022-02-19 10:39 | PCM.HP.STD ---
HPI - General General Date of Admission: 02/19/22 Date of Service: 02/19/22 Chief Complaint: R arm weakness HPI Narrative 81 F hx of chf, copd presented 02/19/2022 with right-sided arm weakness that started at 7 AM. She said she was combing her hair and suddenly her right arm fell and she could not use it and it felt numb. Brought to the ED and stroke call made and ultimately has decided against tPA she was rapidly improving. CT head and CTA unremarkable, hospitalist consulted for further stroke work-up. At the time of evaluation she reported that her hand was almost back to normal, denied that she had had any changes in her gait, did have slight dizziness and felt tired when this happened but that is improved as well. No falls, slight frontal headache but reports she has sinus drainage. Denies that she had any changes in her speaking, no changes in her vision, no other numbness or weakness anywhere. [facility] Medical History Asthma CHF (congestive heart failure) COPD (chronic obstructive pulmonary disease) Status post left heart catheterization (LHC) (~06/26/18) Home Medications carvedilol 3.125 mg tablet 3.125 mg PO BID heart 06/13/18 [History Last Taken 02/19/22] furosemide 20 mg tablet 20 mg PO DAILY fluid 06/13/18 [History Last Taken 02/19/22] lisinopril 5 mg tablet 5 mg PO DAILY blood pressure 06/13/18 [History Last Taken 02/18/22] acetaminophen 500 mg tablet 500 mg PO DAILY PRN Pain 02/19/22 [History Last Taken Unknown] aspirin 81 mg tablet,delayed release 162 mg PO DAILY PRN heart health 02/19/22 [History Last Taken 02/19/22] Allergy/AdvReac Type Severity Reaction Status Date / Time No Known Allergies Allergy Unverified 06/19/18 15:06 Family History Father CAD (coronary artery disease) Mother CHF (congestive heart failure) Brother Hypertension Heart disease Surgical History History of breast surgery Social History (Updated 06/19/18 @ 16:[address] Slava Leyva MD) Smoking Status: Never smoker alcohol intake: never substance use type: does not use caffeine: Yes Type: coffee Number of servings: 1 ROS Constitutional Constitutional: Denies change in weight, chills, fever(s) or night sweats Eyes Eyes: Denies change in vision ENT HEENT: Reports headache(s) and nasal congestion; Denies sore throat Cardiovascular Cardiovascular: Denies chest pain or palpitations Respiratory/Chest Respiratory/Chest: Denies cough or productive cough Gastrointestinal Gastrointestinal: Reports other Details: denies changes in bowel or bladder ; Denies abdominal pain Genitourinary Genitourinary: Reports other Details: denies changes in urination Musculoskeletal Musculoskeletal: Denies joint pain Neurologic Neurologic: Reports other Details: Slight dull frontal headache, right arm weakness and numbness almost resolved, had some dizziness resolved, fatigue, denied other neurological complaints Psychiatric Psychiatric: Denies anxiety Hematologic/Lymphatic Hematologic/Lymphatic: Denies easy bleeding Allergic/Immunologic Allergic/Immunologic: Reports other Details: denies rashes Vital Signs Vital Signs Vital Signs: 02/19/22 08:30 02/19/22 08:49 02/19/22 08:51 Temperature 98.1 F Temperature Source Temporal Pulse Rate 81 116 H 138 H Respiratory Rate 16 20 H 20 H Blood Pressure 166/89 H 135/89 H 135/89 H Blood Pressure Mean 114 104 104 Pulse Ox 97 96 96 Oxygen Delivery Method Room Air Room Air Room Air 02/19/22 09:19 02/19/22 09:19 02/19/22 09:39 Temperature Temperature Source Pulse Rate 73 62 Respiratory Rate 17 14 Blood Pressure 127/71 H 125/76 H Blood Pressure Mean 89 92 Pulse Ox 97 96 96 Oxygen Delivery Method Room Air Room Air Room Air 02/19/22 10:03 02/19/22 10:04 02/19/22 10:04 Temperature 97.6 F L Temperature Source Temporal Pulse Rate 59 L 59 L Respiratory Rate 18 16 18 Blood Pressure 138/73 H 138/73 H Blood Pressure Mean 94 94 Pulse Ox 96 96 Oxygen Delivery Method Room Air Room Air Weight Weight: 78.2 kg Body Mass Index (BMI) 27.8 Physical Exam Const alert and no apparent distress Constitutional Narrative: Oriented HEENT normocephalic and head/scalp atraumatic Eyes Eyes Narrative: Extraocular movements intact, pupils equal round reactive to light Neck supple Resp normal respiratory effort and clear to auscultation bilaterally Cardio regular rate and regular rhythm GI soft to palpation, non-tender and non-distended Extremity Extremity Narrative: No edema appreciated Neuro moves all extremities Neuro Narrative: Cranial nerves II through XII intact, strength 5 out of 5 in bilateral upper extremities, 4 out of 5 in bilateral lower extremities symmetrically, reflexes equal, no clonus, [id number] without difficulty on left side with very minor slowing on right side to hit target Psych Psych Narrative: Cooperative Results Lab / Micro Data Result Diagrams: 02/19/22 08:46 02/19/22 08:46 Labs: Laboratory Results - last 24 hr 02/19/22 08:46: WBC 5.9, RBC 3.72 L, Hgb 11.8 L, Hct 35.3 L, MCV 94.9, MCH 31.7, MCHC 33.4, RDW Std Deviation 48.4 H, RDW Coeff of Bettye 13.9, Plt Count 231, MPV 10.2, Immature Gran % (Auto) 0.300, Neut % (Auto) 55.8, Lymph % (Auto) 27.3, [place] % (Auto) 13.0 H, Eos % (Auto) 2.9, Baso % (Auto) 0.7, Absolute Neuts (auto) 3.3, Absolute Lymphs (auto) 1.62, Nucleated RBC % 0 02/19/22 08:46: PT 13.8, INR 1.1, APTT 28.1 02/19/22 08:46: Sodium 137, Potassium 3.9, Chloride 102, Carbon Dioxide 28.0, Anion Gap 7, BUN 17, Creatinine 0.89, Estim Creat Clear Calc 46.41, Est GFR (MDRD) Af Amer 78, Est GFR (MDRD) Non-Af 65, BUN/Creatinine Ratio 19.1, Glucose 103, Calcium 8.1 L, Troponin I High Sens 6 02/19/22 08:47: POC Glucose [address] 02/19/22 08:33 IMPRESSION: Chronic involutional changes of the brain. N.B. : The above Results were Read Back by Best Singh MD to ESTEPHANIA ROCK and understanding confirmed on 02/19/2022 08:48:08 (ET). Electronically Signed: Best Singh MD at 8:49 EST , ADDENDUM: 02/19/22 0856 IMPRESSION: Chronic involutional changes of the brain. N.B. : The above Results were Read Back by Best Singh MD to ESTEPHANIA ROCK and understanding confirmed on 02/19/2022 08:48:08 (ET). Electronically Signed: Best Singh MD at 8:49 EST , Chest X-Ray 02/19/22 08:33 IMPRESSION: Stable mild increased markings at the lung bases as well as at the lung apices suggestive of scarring. Electronically Signed: Best Singh MD at 10:05 EST , Head/Neck CTA 02/19/22 08:34 IMPRESSION: Calcific N.B. : The above Results were Read Back by Best Singh MD to ESTEPHANIA ROCK and understanding confirmed on 02/19/2022 09:06:30 (ET). Electronically Signed: Best Singh MD at 9:07 EST , ADDENDUM: 02/19/22 0914 IMPRESSION: Calcific N.B. : The above Results were Read Back by Best Singh MD to ESTEPHANIA ROCK and understanding confirmed on 02/19/2022 09:06:30 (ET). Electronically Signed: Best Singh MD at 9:07 EST , Assessment & Plan Assessment/Plan (1) Right arm weakness: PLAN: Plan #Right upper extremity weakness Rule out stroke versus TIA Stroke call in ED Sx started at 7 AM but given rapid improvement was not given tPA CT head w/ chronic changes CTA w/ extensive atherosclerotic plaque formation of the origin of the left internal carotid artery with an estimated stenosis of greater than 70%.- vascular surgery c/s MRI ordered Echo ordered Admit to telemetry NIH every 4 hours Aspirin, statin A1c, lipid panel, TSH in a.m. PT/OT/speech #History of congestive heart failure Likely diastolic given 2018 echo with EF 60% but diastolic indeterminent Daily weights Continue carvedilol, lisinopril, furosemide repeat echo #DVT ppx: Montse Lehman MD Charges/Coding Visit Charges Inpatient E&M: 49819 Init Hosp L2
--- NOTE | 2022-02-19 15:00 | MRI_ITS ---
We are attempting to reach an attending provider to discuss findings. An addendum with communication details will be sent when the communication is complete. STUDY: MRI BRAIN WITHOUT CONTRAST REASON FOR EXAM: Female, 81 years old. Right arm weakness and numbness TECHNIQUE: Multiplanar multisequence imaging of the brain was performed without the administration of intravenous contrast. COMPARISON: Noncontrast head CT earlier same date FINDINGS: The ventricles, cisterns, and sulci are within are prominent consistent with age-related volume loss. Scattered, small foci of acute diffusion restriction abnormality in the high left parietal cortex. No succeptibility artifict to suggest intracranial hemorrhage or mineralization. Major intracranial signal voids are preserved. There is high T2/FLAIR signal seen in the periventricular deep white matter. There is no midline shift, mass effect, or extra axial fluid collections are seen. No CP angle or IAC mass is seen. The orbits are unremarkable. The sella turcica and craniovertebral junction are within normal limits. The visualized paranasal sinuses are clear. The mastoid air cells are clear. MRI/Brain without Contrast IMPRESSION: Scattered foci of acute ischemia in the high left parietal cortex. Chronic microvascular ischemic changes. Electronically Signed: Jr Cartagena MD at 16:55 EST ,
[2022-02-19] MEDS: Aspirin 325 MG Tablet PO (18:14)
[2022-02-19] MEDS: Clopidogrel Bisulfate 300 MG Tablet PO (18:14)
[2022-02-19] MEDS: Carvedilol 3.125 MG TABLET PO (22:16)
[2022-02-19] MEDS: Atorvastatin Calcium 80 MG Tablet PO (22:16)
[2022-02-20 01:45] VITALS: BP 122/68; PULSE 63; RESP 20; TEMP 36.5; O2SAT 97
[2022-02-20 05:45] VITALS: BP 135/70; PULSE 63; RESP 18; TEMP 36.5; O2SAT 97
[2022-02-20 06:19] LABS: Absolute Lymphocyte Count 1.76 X10^3/uL (0.83-4.51); Absolute Neutrophil Count 2.7 X10^3/uL (2.0-7.7); Basophil# 0.04 X10^3/uL; Basophil% 0.8 % (0-1); Eosinophil# 0.07 X10^3/uL; Eosinophils% 1.4 % (0-5); Hematocrit 41.2 % (37-47); Hemoglobin 13.5 g/dL (12.0-15.0); Lymphocyte # 1.76 X10^3/ul (0.83-4.51); Lymphocyte % 34.6 % (19-41); Mean Corp Hgb Conc 32.8 g/dL (32-36); Mean Corpuscular Hgb 31.3 pg (27.0-32.0); Mean Corpuscular Volume 95.4 fL (81-99); Mean Platelet Vol. 9.8 fl (6.2-12.0); Monocyte# 0.54 X10^3/uL; Monocyte% 10.6 % (0-10); NRBC Flagged by Analyzer 0 % (0-5); Neutrophil # 2.67 X10^3/uL (2.7-7.7); Neutrophil % 52.4 % (47-70); Platelet Count 235 K/mm3 (150-450); RBC Distribution Width CV 14.1 % (11.6-14.6); RBC Distribution Width SD 49.3 fl (35.1-43.9); Red Blood Count 4.32 M/mm3 (4.2-5.4); White Blood Count 5.1 K/mm3 (4.4-11.0)
[2022-02-20 06:44] LABS: International Normalized Ratio 1.1; Prothrombin Time (Protime)PT. 13.4 SECONDS (11.7-14.9)
[2022-02-20 07:02] LABS: ALB/GLOB Ratio 0.7 RATIO (0.9-2.4); AST(SGOT) 14 U/L (15-37); Alanine Aminotransfer ALT/SGPT 23 U/L (13-56); Albumin, Serum 2.8 g/dL (3.2-5.0); Alkaline Phosphatase 60 U/L (45-117); Anion Gap 8 (5-15); BUN 14 mg/dL (7-18); BUN/Creat Ratio 16.5 RATIO (10-20); Calcium,Total 8.6 mg/dL (8.5-10.1); Chloride 106 mmol/L (98-107); Cholesterol 225 mg/dL (200); Creatinine, Serum 0.85 mg/dL (0.55-1.02); EST Glomerular Filtration Rate 68 mL/min (>60); Est Glom Filt Rate - Afr Amer 83 mL/min (>60); Estimated Creatinine Clearance 46.71 ml/min; Glucose 99 mg/dL (74-106); High Density Lipoprotein 43 mg/dL; Potassium 4.1 mmol/L (3.5-5.1); Protein, Total 6.8 g/dL (6.4-8.2); Sodium Level 139 mmol/L (136-145); Thyroid Stim Hormone (TSH) 1.62 uIU/mL (0.358-3.74); Triglycerides 211 mg/dL; Very Low Density Lipoprotein 42 mg/dL (5-40)
[2022-02-20 07:20] VITALS: BP 148/74; PULSE 60; RESP 16; TEMP 36.3; O2SAT 96
[2022-02-20 07:35] VITALS: O2SAT 96
[2022-02-20 10:01] VITALS: BP 134/66; PULSE 72; RESP 16; TEMP 36.4; O2SAT 95
[2022-02-20] MEDS: 0.9% Saline Lock 10 ML Syringe IV (10:18)
[2022-02-20] MEDS: Enoxaparin 40 MG/0.4 ML Syringe SC (10:18)
[2022-02-20] MEDS: Carvedilol 3.125 MG TABLET PO (10:19)
[2022-02-20] MEDS: FLU VACC QS2022-23(6MOS UP)/PF 60 MCG/0.5 ML SYRINGE IM (10:19)
[2022-02-20] MEDS: Aspirin 81 MG TAB.CHEW PO (10:19)
[2022-02-20] MEDS: Furosemide 20 MG Tablet PO (10:20)
[2022-02-20] MEDS: Clopidogrel Bisulfate 75 MG Tablet PO (10:20)
[2022-02-20] MEDS: Lisinopril 5 MG Tablet PO (10:20)
--- NOTE | 2022-02-20 10:38 | TELEMED_ITS ---
[facility] Tele[facility] has confirmed receipt of a request for visit. This document confirms receipt of the order initiating the consult. To find the results of the consultation, please view the patient's reports for the scanned Telemed Consult.
--- NOTE | 2022-02-20 11:49 | CASEMGMT ---
SW completed a PHQ9 with patient as she had a Stroke. Patient scored a 3 which indicates minimal depression. Patient's main issues are always being tired which she and her daughter do not feel is related to depression. Anne Gimenez [employer]
[2022-02-20 15:00] VITALS: BP 127/53; PULSE 65; RESP 18; TEMP 36.5; O2SAT 95
--- NOTE | 2022-02-20 16:06 | CON.PCM.SX_ITS ---
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: PLAN: -CTA images reviewed, 66% stenosis, soft plaque with minimal calcification -discussed options of medical tx given that she wasnt on antiplatelet at time vs CEA vs stent -patient/daughter would prefer intervention; would be appropriate for both CEA or TCAR -baseline functional capacity limited due to SOB; TCAR would limit duration of anesthesia which would be potential advantage -images reviewed with TCAR desk representative; appropriate anatomy -ok to DC; ASA, Brilinta, Lipitor -will schedule HPI Consult Data Date of Consult: 02/20/22 HPI Narrative HPI Narrative: NATALY MARTINEZ, is a 81 F who presents with right arm motor/sensory dysfunction that began abruptly. Began improving shortly after arrival at ED, tpa was not given. Her arm/hand continues to improve but not quite to baseline. No vision loss/speech difficultly/LE symptoms. No prior symptoms. Was not on antiplatelet or statin. Hx of COPD, no O2 or inhalers currently. History of CHF. COUNTS INCLUDE 234 BEDS AT THE [facility] Medical History Asthma CHF (congestive heart failure) COPD (chronic obstructive pulmonary disease) Status post left heart catheterization (LHC) (~06/26/18) Home Medications carvedilol 3.125 mg tablet 3.125 mg PO BID heart 06/13/18 [History Last Taken 02/19/22] furosemide 20 mg tablet 20 mg PO DAILY fluid 06/13/18 [History Last Taken 02/19/22] lisinopril 5 mg tablet 5 mg PO DAILY blood pressure 06/13/18 [History Last Taken 02/18/22] acetaminophen 500 mg tablet 500 mg PO DAILY PRN Pain 02/19/22 [History Last Taken Unknown] aspirin 81 mg tablet,delayed release 162 mg PO DAILY PRN heart health 02/19/22 [History Last Taken 02/19/22] Allergy/AdvReac Type Severity Reaction Status Date / Time No Known Allergies Allergy Unverified 06/19/18 15:06 Family History Father CAD (coronary artery disease) Mother CHF (congestive heart failure) Brother Hypertension Heart disease Surgical History History of breast surgery Social History Smoking Status: Never smoker alcohol intake: never substance use type: does not use caffeine: Yes Type: coffee Number of servings: 1 Physical Exam Const alert, oriented x3, no apparent distress and healthy appearing General Appearance: cooperative; Negative for combative or lethargic Orientation / Consciousness: awake Exam Limitations: no limitations HEENT Head and Scalp: normocephalic and atraumatic Eyes EOMs intact bilaterally General Eye: normal appearance of both eyes Neck full ROM, no lymphadenopathy and thyroid normal General: trachea midline; Negative for lymphadenopathy or tenderness Thyroid: thyroid normal Lymph Lymphatic: Negative for no lymphadenopathy noted Resp normal respiratory effort and no use of accessory muscles Effort and Inspection: Negative for labored, stridor or audible wheezes Cardio regular rate and regular rhythm Peripheral Pulses: brachial pulses present, radial pulses present, popliteal pulses present, posterior tibial pulses present and dorsalis pedis pulses present Back/Spine Cervical Spine: cervical ROM normal Extremity full ROM, normal capillary refill and no clubbing, cyanosis or edema Skin no rashes or lesions noted and no wounds Neuro oriented x3, CN's II-XII intact bilaterally, No no focal motor deficits and no sensory deficits noted Neuro Narrative: 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 Psych thought process normal, cooperative, affect normal, speech normal and activity/motor behavior normal Lab / Micro Data Result Diagrams: 02/20/22 06:08 02/20/22 06:08 Labs: Laboratory Results - last 24 hr 02/20/22 06:08: WBC 5.1, RBC 4.32, Hgb 13.5, Hct 41.2, MCV 95.4, MCH 31.3, MCHC 32.8, RDW Std Deviation 49.3 H, RDW Coeff of Bettye 14.1, Plt Count 235, MPV 9.8, Immature Gran % (Auto) 0.200, Neut % (Auto) 52.4, Lymph % (Auto) 34.6, [place] % (Auto) 10.6 H, Eos % (Auto) 1.4, Baso % (Auto) 0.8, Absolute Neuts (auto) 2.7, Absolute Lymphs (auto) 1.76, Nucleated RBC % 0 02/20/22 06:08: PT 13.4, INR 1.1 02/20/22 06:08: Sodium 139, Potassium 4.1, Chloride 106, Carbon Dioxide 25.0, Anion Gap 8, BUN 14, Creatinine 0.85, Estim Creat Clear Calc 46.71, Est GFR (MDRD) Af Amer 83, Est GFR (MDRD) Non-Af 68, BUN/Creatinine Ratio 16.5, Glucose 99, Calcium 8.6, Total Bilirubin 0.30, AST 14 L, ALT 23, Alkaline Phosphatase 60, Total Protein 6.8, Albumin 2.8 L, Globulin 4.0, Albumin/Globulin Ratio 0.7 L , Triglycerides 211 H, Cholesterol 225 H, LDL Cholesterol 140 H, VLDL Cholesterol 42 H, HDL Cholesterol 43, TSH 1.62 Radiology Impression Brain MRI 02/19/22 15:00 IMPRESSION: Scattered foci of acute ischemia in the high left parietal cortex. Chronic microvascular ischemic changes. Electronically Signed: Jr Cartagena MD at 16:55 EST , ADDENDUM: 02/19/22 1716 IMPRESSION: Scattered foci of acute ischemia in the high left parietal cortex. Chronic microvascular ischemic changes. N.B. : The above Results were Read Back by Jr Cartagena MD to Trina Lehman MD, and understanding confirmed on 02/19/2022 17:09:36 (ET). Electronically Signed: Jr Cartagena MD at 16:55 EST , Charges/Coding Visit Charges Inpatient E&M: 76801 Init Hosp L3
--- NOTE | 2022-02-20 16:15 | CASEMGMT ---
ELY CARCAMO Face to Face with patient for initial transition planning/care coordination assessment. ELY CARCAMO introduced self and role at [facility]. Patient lying in bed, alert and oriented, family at bedside. Patient willing to participate in assessment and is able to answer all questions appropriately. Care providers, pharmacy, and demographics verified. Patient wishes to discharge home, denies need for home health at this time. Patient states she has no further needs or concerns at this time. CM to follow for discharge planning needs that may arise. PCP: Mia Specialists: Usman Hunt Pharmacy: [facility] retail Insurance: [employer] Prescription Benefit: none Living Will/HPOA: yes, daughter Keyona Plasencia LNOK: , daughter Living Arrangements: Patient lives with in a single story home with no steps to enter. Patient states she is independent at home. Transportation: daughter DME/HHC: Patient states she has shower chair, raised toilet, and cane at home. No previous HHC or SNF. ELY CARCAMO discussed possible home therapy, family and patietn declining at this time. RN DONA requested therapy provide handouts for patient to take home. Information provided regarding [facility]. RN CM instructed family that if they should reconsider to follow up with PCP to arrange for home therapy, family voiced understanding. RN CM updated hospitalist regarding discharge plans. Disposition Plan: Patient to discharge home with therapy exercises, family support, and follow-up plans in place. Tia AGUIRRE, RN, CM
--- NOTE | 2022-02-20 17:25 | DCINST_ITS ---
Discharge Instructions Diet Discharge Diet: - (Resume home diet ) Activity Discharge Activity: Return to Normal Activity Follow Up Care Test Results: Test results from this visit will be discussed in further detail at your follow- up appointment, if applicable. Discharge Plan Admission Admit Date/Time: 02/19/22 10:25 Primary Reason for Your Visit: right arm numbness and weakness Attending Provider: Trina Lehman Primary Care Provider: Shiv Bellamy Consulting Providers: Bonilla Mary Discharge Orders/Prescriptions Prescriptions: New atorvastatin 80 mg Tablet 80 mg PO QHS 30 Days Qty: 30 0RF aspirin 81 mg Tablet,Chewable 81 mg PO BREAKFAST 30 Days Qty: 30 0RF Brilinta 90 mg Tablet 90 mg PO BID 60 Days Qty: 120 0RF Continued lisinopril 5 mg tablet 5 mg PO DAILY carvedilol 3.125 mg tablet 3.125 mg PO BID furosemide 20 mg tablet 20 mg PO DAILY Discontinued aspirin [Aspirin Low-Strength] 81 mg Tablet,Delayed Release (Dr/Ec) 162 mg PO DAILY PRN (Reason: heart health) acetaminophen 500 mg Tablet 500 mg PO DAILY PRN (Reason: Pain) Referrals / Follow Up: Bonilla Mary MD [Med Staff - Active Staff] - Within 1 Week Di Guerra MD [Med Staff - Ophthalmologist Retina Specialist] - Slava Leyva MD [Med Staff - Active Staff] - Within 2 Weeks Diaz Dill MD [Non-Staff -Ordering Privileges] - See Referral Note (Please call the neurologists office upon discharge to schedule hospital follow-up appointment) Shiv Bellamy MD [Primary Care Provider] - Disposition Disposition (needs filled in before D/C Order can be placed): Home, Self Care
--- NOTE | 2022-02-20 17:38 | DS.PCM_ITS ---
Providers Date of Admission: 02/19/22 Date of Discharge: 02/20/22 Primary Care Physician: Dr. 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: Status: Acute Code(s): I63.232 - Cerebral infarction due to unspecified occlusion or stenosis of left carotid arteries (2) Right arm weakness: Status: Acute Code(s): R29.898 - Other symptoms and signs involving the musculoskeletal system Plan #CVA #History of congestive heart failure Medications at Discharge Home Medications carvedilol 3.125 mg tablet 3.125 mg PO BID heart 06/13/18 furosemide 20 mg tablet 20 mg PO DAILY fluid 06/13/18 lisinopril 5 mg tablet 5 mg PO DAILY blood pressure 06/13/18 aspirin 81 mg chewable tablet 81 mg PO BREAKFAST 30 days #30 tabs 02/20/22 atorvastatin 80 mg tablet 80 mg PO QHS 30 days #30 tabs 02/20/22 ticagrelor 90 mg tablet (Brilinta) 90 mg PO BID 60 days #120 tabs 02/20/22 Hospital Course Procedures - (MRI, echo, CT head, CTA head and neck) Summary of Care Provided Minutes Spent on Discharge: 35 Hospital Course: 81-year-old male with reported history of congestive heart failure presented 02/19/2022 with arm weakness and numbness that started at 7 AM on day of presentation. She reports she was combing her hair and suddenly felt numb and fell beside her. In the ED stroke call was made but she had rapid improvement so tPA was not administered. CT head unremarkable and hospitalist consulted for further stroke work-up. CTA head and neck did show left internal carotid stenosis and MRI revealed scattered foci of acute ischemia in the high left parietal cortex. Echo overall unchanged, previous bubble study negative. Given atherosclerosis, symptoms, location of the stroke it was felt there was a high likelihood it was due to to an atheroembolic event. Neurology reevaluated as did vascular surgery. Plan for aspirin and Brilinta on discharge with close vascular follow-up and likely outpatient intervention and. Spoke with vascular they are still recommended to follow-up with her geographic information systems analyst on day of discharge she reports her symptoms are significantly improved and has no new symptoms. Instructions provided as below: *Please take this with you to your next doctors appointment* ?You were admitted and found to have a stroke as well as plaque in one of your arteries that likely caused the stroke ?You will need to take an 81 mg aspirin daily you will also be discharged with a prescription for a medication called Brilinta that you will also need to take, the vascular doctor, Dr. Mary, will advise when you are able to discontinue the Brilinta. ?You will also be discharged on atorvastatin 80 mg which she will take nightly ?You can continue your home carvedilol, furosemide, lisinopril ? You will need to follow with the vascular doctor, Dr. Mary, in the office next week. Contact information will be provided, please call to schedule this appointment upon discharge. ?It is advised that he follow-up with cardiology upon discharge, please call to schedule a follow-up appointment as he may need evaluated prior to your potential vascular procedure ?Information for neurology will be provided, please call to schedule a follow-up appointment -Please call your primary care provider's office upon discharge to schedule a hospital follow up within 1 week. -For any concerning signs or symptoms please call 911 or proceed to the nearest emergency department Physical Exam Const alert and no apparent distress Constitutional Narrative: Oriented HEENT normocephalic and head/scalp atraumatic Eyes Eyes Narrative: Extraocular movements intact Neck supple Resp normal respiratory effort and clear to auscultation bilaterally Cardio regular rate and regular rhythm GI soft to palpation, non-tender and non-distended Extremity Extremity Narrative: No edema appreciated Neuro moves all extremities Neuro Narrative: No overt focal deficits appreciated Psych Psych Narrative: Cooperative Weight / BMI Weight Weight: 76.34 kg Body Mass Index (BMI) 28.0 ABG / Lab / Microbiology Data Result Diagrams: 02/20/22 06:08 02/20/22 06:08 Laboratory: Laboratory Results - last 24 hr 02/20/22 06:08: WBC 5.1, RBC 4.32, Hgb 13.5, Hct 41.2, MCV 95.4, MCH 31.3, MCHC 32.8, RDW Std Deviation 49.3 H, RDW Coeff of Bettye 14.1, Plt Count 235, MPV 9.8, Immature Gran % (Auto) 0.200, Neut % (Auto) 52.4, Lymph % (Auto) 34.6, [place] % (Auto) 10.6 H, Eos % (Auto) 1.4, Baso % (Auto) 0.8, Absolute Neuts (auto) 2.7, Absolute Lymphs (auto) 1.76, Nucleated RBC % 0 02/20/22 06:08: PT 13.4, INR 1.1 02/20/22 06:08: Sodium 139, Potassium 4.1, Chloride 106, Carbon Dioxide 25.0, Anion Gap 8, BUN 14, Creatinine 0.85, Estim Creat Clear Calc 46.71, Est GFR (MDRD) Af Amer 83, Est GFR (MDRD) Non-Af 68, BUN/Creatinine Ratio 16.5, Glucose 99, Calcium 8.6, Total Bilirubin 0.30, AST 14 L, ALT 23, Alkaline Phosphatase 60, Total Protein 6.8, Albumin 2.8 L, Globulin 4.0, Albumin/Globulin Ratio 0.7 L , Triglycerides 211 H, Cholesterol 225 H, LDL Cholesterol 140 H, VLDL Cholesterol 42 H, HDL Cholesterol 43, TSH 1.62 D/C Instructions Discharge Diet: - (Resume home diet ) Meaningful Use Info Meaningful Use Diagnoses (Choose all that apply): Ischemic CVA CVA Therapy Assessed for PT,OT and/or ST?: Yes Ischemic Stroke Antithrombotic order at d/c?: Yes Dx of Atrial fib/flutter?: No Statins at discharge?: Yes Primary Dx Acute Ischemic CVA?: Yes IV tPA ordered during stay?: No Reason IV t-PA not ordered: Treatment not Indicated Discharge Plan Admission Admit Date/Time: 02/19/22 10:25 Primary Reason for Your Visit: right arm numbness and weakness Attending Provider: Trina Lehman Primary Care Provider: Shiv Bellamy Consulting Providers: Bonilla Mary Instructions Additional Instructions / Restrictions: *Please take this with you to your next doctors appointment* ?You were admitted and found to have a stroke as well as plaque in one of your arteries that likely caused the stroke ?You will need to take an 81 mg aspirin daily you will also be discharged with a prescription for a medication called Brilinta that you will also need to take, the vascular doctor, Dr. Mary, will advise when you are able to discontinue the Brilinta. ?You will also be discharged on atorvastatin 80 mg which she will take nightly ?You can continue your home carvedilol, furosemide, lisinopril ? You will need to follow with the vascular doctor, Dr. Mary, in the office next week. Contact information will be provided, please call to schedule this appointment upon discharge. ?It is advised that he follow-up with cardiology upon discharge, please call to schedule a follow-up appointment as he may need evaluated prior to your potential vascular procedure ?Information for neurology will be provided, please call to schedule a follow-up appointment -Please call your primary care provider's office upon discharge to schedule a hospital follow up within 1 week. -For any concerning signs or symptoms please call 911 or proceed to the nearest emergency department Discharge Orders/Prescriptions Prescriptions: New atorvastatin 80 mg Tablet 80 mg PO QHS 30 Days Qty: 30 0RF aspirin 81 mg Tablet,Chewable 81 mg PO BREAKFAST 30 Days Qty: 30 0RF Brilinta 90 mg Tablet 90 mg PO BID 60 Days Qty: 120 0RF Continued lisinopril 5 mg tablet 5 mg PO DAILY carvedilol 3.125 mg tablet 3.125 mg PO BID furosemide 20 mg tablet 20 mg PO DAILY Discontinued aspirin [Aspirin Low-Strength] 81 mg Tablet,Delayed Release (Dr/Ec) 162 mg PO DAILY PRN (Reason: heart health) acetaminophen 500 mg Tablet 500 mg PO DAILY PRN (Reason: Pain) Referrals / Follow Up: Bonilla Mary MD [Med Staff - Active Staff] - Within 1 Week Di Guerra MD [Med Staff - Box Stacker] - Slava Leyva MD [Med Staff - Active Staff] - Within 2 Weeks Diaz Dill MD [Non-Staff -Ordering Privileges] - See Referral Note (Please call the neurologists office upon discharge to schedule hospital follow-up appointment) Shiv Bellamy MD [Primary Care Provider] - Disposition Disposition (needs filled in before D/C Order can be placed): Home, Self Care Charges/Coding Visit Charges Inpatient E&M: 18853 Disch Hosp >30min
== END 2022-02-20 19:30 | disposition home or self-care (01) | DRG 65 ==
LOC: ED 09:18 → PCU 15:21
PROVIDERS: Admitting Provider Internal Medicine; Emergency Provider Emergency Medicine; PCP Internal Medicine Infectious Disease; Visit Provider Internal Medicine
DX: I63.232 Cerebral infarction due to unspecified occlusion or stenosis of left carotid arteries (principal); I50.32 Chronic diastolic (congestive) heart failure; E78.5 Hyperlipidemia, unspecified; G83.24 Monoplegia of upper limb affecting left nondominant side; J44.9 Chronic obstructive pulmonary disease, unspecified; R29.702 NIHSS score 2; R29.700 NIHSS score 0; Z79.82 Long term (current) use of aspirin; Z79.899 Other long term (current) drug therapy; Z23 Encounter for immunization
CPT/HCPCS: 36415; 70450; 70496; 70498; 70551; 71045; 80048; 80053; 80061; 82962; 84443; 84484; 85025; 85610; 85730; 93005; 93306; 94762; 97162; 97166; 99252; 99285; Q9967; 90686; A4216; G0463

== ENCOUNTER 2022-03-14 06:30 | Inpatient (IN) | payer SELFPAY, OTHER ==
[2022-03-14] VITALS (15 sets, daily range): BP systolic 103–133; BP diastolic 51–76; PULSE 53–71; RESP 11–21; TEMP 36.1–36.8; O2SAT 94–98; BMI 27.8; BMI 27.9
--- NOTE | 2022-03-14 06:45 | HP_ITS ---
Intake Vital Signs 02/19/22 14:54 02/27/22 10:18 Height 5 ft 5 in BP 115/69 Blood Pressure Location Lt brachial Position Sitting Respiration 18 Pulse 60 Pulse Source Monitor Temp 98.2 F Temp Source Temporal Pulse Oximetry (%) 95 Oxygen Delivery Method room air Intake Visit Reasons: discuss carotid stent Chief Complaint: discuss procedure Is patient in pain?: No Allergies No Known Allergies Allergy (Unverified 02/27/22 10:19) Medications carvedilol 3.125 mg tablet 3.125 mg PO BID heart 06/13/18 [History Confirmed 02/27/22] furosemide 20 mg tablet 20 mg PO DAILY fluid 06/13/18 [History Confirmed 02/27/22] lisinopril 5 mg tablet 5 mg PO DAILY blood pressure 06/13/18 [History Confirmed 02/27/22] aspirin 81 mg chewable tablet 81 mg PO BREAKFAST 30 days #30 tabs 02/20/22 [Rx Confirmed 02/27/22] atorvastatin 80 mg tablet 80 mg PO QHS 30 days #30 tabs 02/20/22 [Rx Confirmed 02/27/22] ticagrelor 90 mg tablet (Brilinta) 90 mg PO BID 60 days #120 tabs 02/20/22 [Rx Confirmed 02/27/22] PFSH Medical History Asthma CHF (congestive heart failure) COPD (chronic obstructive pulmonary disease) Status post left heart catheterization (LHC) (~06/26/18) Surgical History History of breast surgery Family History Father CAD (coronary artery disease) Mother CHF (congestive heart failure) Brother Hypertension Heart disease Other Cancer High cholesterol Seizures Social History Smoking Status: Never smoker alcohol intake: never substance use type: does not use caffeine: Yes Type: coffee Number of servings: 1 HPI HPI HPI: NATALY MARTINEZ, is a 81 F who presents to the office today for follow up of symptomatic left carotid stenosis. No further neurologic symptoms/concerns. Tolerating Brilinta with no bleeding issues; some bruising. ROS General General: Yes fatigue and weakness; No weight change, appetite, colon cancer or breast cancer HEENT HEENT: No difficulty swallowing, eye injury, eye surgery, swollen glands or hoarseness Endo Endocrine: No thyroid disease, diabetes mellitus, thyroid cancer, Hair loss, heat intolerance or cold intolerance Skin Skin: No rash or changing moles Musc Musculoskeletal: Yes arthritis; No back problems, rheumatoid arthritis, gout or joint pain Cardio Cardiovascular: Yes heart disease; No murmur, pacemaker, atrial fibrillation, high blood pressure, heart attack, heart stent, palpitations, shortness of breat with exertion or chest pain Psych Psychiatric: No depression, anxiety or hearing voices Resp Respiratory: Yes shortness of breath, No sleep apnea, Yes cough, Yes COPD, Yes asthma, No emphysema and No wheezing Gastro Gastrointestinal: No abdominal pain, No nausea or vomiting, No diarrhea, No constipation, No blood in stool, No acid reflux, No hemorrhoids, No ulcers, No gallbladder problem and No black,tarry stools Srinivas Hematologic: Yes blood thinners, No blood disorders, No bleeding, No anemia and No blood clots Neuro Neurologic: No system reviewed and no additional complaints, except as documented, No as per HPI, No abnormal gait, No abnormal hearing, No abnormal movements, No abnormal speech, No behavioral changes, No burning sensations, No confusion, No convulsions, No disequilibrium, No dizziness, No localized weakness, No frequent falls, No headache(s), No lack of coordination, No loss of vision, No memory loss, No numbness, No other visual disturbances, No radicular pain, No restless legs, No sensory deficit, No syncope, No tingling, No tremor(s), Yes weakness and No other Exam Const General: cooperative, healthy appearing, comfortable, no acute distress and well developed Nutritional Appearance: well nourished Orientation: alert, awake and oriented [facility] Head: normocephalic and atraumatic Ears: hearing grossly normal bilaterally Nose: external nose normal Eyes General: appearance normal, both eyes and all related structures EOM: EOM intact bilaterally Neck Neck: normal visual inspection, full ROM, no lymphadenopathy and trachea midline Thyroid: thyroid normal Lymphatic: no lymphadenopathy noted Resp Effort & Inspection: normal respiratory effort, able to speak in complete sentences, symmetric chest movement, no audible wheezes, not labored, no stridor and no use of accessory muscles Auscultation: clear to auscultation bilaterally Cardio Rate: regular rate Rhythm: regular rhythm Heart Sounds: no murmurs Skin General: no rashes or lesions noted and no erythema Wounds: no wounds Neuro Cranial Nerves: CN's II-XI intact bilaterally and EOM intact bilaterally Speech: speech normal Gait: normal gait Motor: strength 5/5 throughout Sensory Exam: no sensory deficits noted Extremities Pulses: Normal: Right Radial Pulse and Diminished: Left Radial Pulse Psych Appearance: grossly normal and well kempt Mental Status: mental status grossly normal Mood: congruent mood Speech and Movement: speech and movement normal Thought Content: normal Judgment: judgment good Coding Level of Care Code Off vis,est,level 3 Diagnoses 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
[2022-03-14] MEDS: Lactated Ringers 1,000 ML 15 ML IV (06:55)
--- NOTE | 2022-03-14 12:15 | PCM.OPRPT ---
Report of Operation Date of Procedure: 03/14/22 Pre-Operative Diagnosis: left carotid stenosis Post-Operative Diagnosis: same Surgery/Procedure Performed:: left carotid stent Surgeon: Bonilla Mary Type of Anesthesia: General Estimated Blood Loss (mL): 50 Description of Procedure: HPI: Patient is an 81-year female with left carotid stenosis which is symptomatic in nature. She had preoperative imaging which revealed that she was appropriate for carotid stenting, and will be candidate for transcarotid artery stenting. She is taken out for elective left carotid stent for stroke prevention. Description of procedure: Upon obtaining form consent and verification correct patient procedure site patient was taken to the [facility] where an arterial line was placed for hemodynamic monitoring. She is then placed under anesthesia and positioned prepped and draped in usual sterile fashion. Ultrasound used to evaluate the position of the common carotid artery which was tortuous in nature, and more medial in location than typical. Time was performed, and a transverse incision was made 1 fingerbreadth superior to the clavicle. Bovie letter cautery to dissect down to the subcutaneous tissue and self-retaining tractors put in position. For dissection carried down through the platysma into the lateral aspect of the sternocleidomastoid. This was then retracted medially and sharp dissection used to dissect down to the carotid sheath. The jugular vein was identified, dissected free and mobilized and retracted laterally exposing the common carotid artery. Sharp dissection used to dissect free the common carotid artery proximal distal and a ready was placed vessel loop. Care was taken to identify protect the vagus nerve. Next under also guidance the right common femoral vein was accessed in a retrograde fashion with micropuncture needle wire. This then exchanged from a puncture sheath through which a J-wire was advanced and the my puncture sheath exchanged out for the venous return sheath. Patient was then heparinized and allowed to circulate for 3 minutes followed by an ACT with further heparin dose adjustments. 5-0 Prolene pursestring suture was placed in the proximal common carotid artery. Once we had satisfactory ACT threshold the left common carotid artery was accessed with my puncture needle wire in antegrade fashion. This then extends out from a puncture sheath from the transcarotid stent system. Is advanced in position and hand-injection subjection angiography performed revealing satisfactory placement, and revealing the position of the carotid bifurcation. We then navigated into the external carotid artery with micropuncture wire then advanced the sheath into the external carotid. Through this the transcarotid J-wire was advanced and the micropuncture sheath exchanged out for the flow reversal sheath. This was then secured in position with suture. Multiple oblique views were performed to confirm satisfactory sheath positioning and to paddy the carotid lesion. The flow reversal system was then connected and activated in the proximal common carotid artery clamped. We then advanced a 5 x 12 angioplasty balloon and to the internal carotid artery navigating with the carotid stent wire. The lesion was then predilated to nominal and then deflated and withdrawn. Next a 9 x 30 En Route carotid stent was brought in for prepped from infection instructions. This is advanced in the position and deployed and the delivery system withdrawn. Completion angiography confirmed satisfactory resolution of the stenosis with no extravasation or dissection. There was some minor spasm just beyond the stent which was felt to further intervention. The flow reversal was continued for a total of 2 minutes after stent placement to clear any potential debris. The flow reversal was then detached and blood returned to the venous system. Prolene suture in the common carotid artery was then secured as the sheath was withdrawn assessment hemostasis noted. Patient then versed with protamine and Zaheer topical hemostatic applied. The femoral vein sheath was withdrawn manner pressure held for 5 minutes with satisfactory mistakes as noted. A 19 [place] Citizen channel CROW was then placed via separate stab incision in the neck incision closed with 3-0 Vicryl for Monocryl and Dermabond for the skin. The close in case patient weakness he is moving all extremities to command. She was taken to the intensive care unit for hemodynamic and neurologic monitoring.
[2022-03-14] MEDS: 0.9% Normal Saline 1,000 ML 75 ML IV (13:10)
[2022-03-14] MEDS: Acetaminophen 500 MG Tablet 1000 MG PO ×2 (16:13→22:17)
[2022-03-14] MEDS: Cefazolin 1 GM/50 ML BAG IV (16:13)
[2022-03-14 16:15] LABS: ACT Activated Clotting Time 155 sec (74-137)
[2022-03-14 16:16] LABS: ACT Activated Clotting Time 395 sec (74-137)
[2022-03-14 16:16] LABS: ACT Activated Clotting Time 215 sec (74-137)
--- NOTE | 2022-03-14 19:45 | CPS ---
IS and PEP not done at this time. Pt was sleeping.
[2022-03-14] MEDS: Carvedilol 3.125 MG TABLET PO (22:17)
[2022-03-14] MEDS: Atorvastatin Calcium 80 MG Tablet PO (22:17)
[2022-03-14] MEDS: TICAGRELOR 90 MG TABLET PO (22:17)
[2022-03-15] VITALS (20 sets, daily range): BP systolic 93–133; BP diastolic 43–72; PULSE 54–74; RESP 12–22; TEMP 36.1–37.1; O2SAT 94–97
[2022-03-15] MEDS: 0.9% Normal Saline 1,000 ML 75 ML IV (01:29)
[2022-03-15] MEDS: Cefazolin 1 GM/50 ML BAG IV (01:30)
[2022-03-15 05:23] LABS: Absolute Lymphocyte Count 1.45 X10^3/uL (0.83-4.51); Absolute Neutrophil Count 4.7 X10^3/uL (2.0-7.7); Basophil# 0.05 X10^3/uL; Basophil% 0.7 % (0-1); Eosinophil# 0.23 X10^3/uL; Eosinophils% 3.3 % (0-5); Hematocrit 31.3 % (37-47); Hemoglobin 10.4 g/dL (12.0-15.0); Lymphocyte # 1.45 X10^3/ul (0.83-4.51); Lymphocyte % 20.5 % (19-41); Mean Corp Hgb Conc 33.2 g/dL (32-36); Mean Corpuscular Hgb 31.7 pg (27.0-32.0); Mean Corpuscular Volume 95.4 fL (81-99); Monocyte# 0.62 X10^3/uL; Monocyte% 8.8 % (0-10); NRBC Flagged by Analyzer 0 % (0-5); Neutrophil # 4.69 X10^3/uL (2.7-7.7); Neutrophil % 66.4 % (47-70); Platelet Count 218 K/mm3 (150-450); RBC Distribution Width CV 14.1 % (11.6-14.6); RBC Distribution Width SD 49.9 fl (35.1-43.9); Red Blood Count 3.28 M/mm3 (4.2-5.4); White Blood Count 7.1 K/mm3 (4.4-11.0)
[2022-03-15 05:42] LABS: Anion Gap 5 (5-15); BUN 11 mg/dL (7-18); BUN/Creat Ratio 17.5 RATIO (10-20); Calcium,Total 7.9 mg/dL (8.5-10.1); Chloride 111 mmol/L (98-107); Creatinine, Serum 0.63 mg/dL (0.55-1.02); EST Glomerular Filtration Rate 96 mL/min (>60); Est Glom Filt Rate - Afr Amer 117 mL/min (>60); Glucose 92 mg/dL (74-106); Potassium 3.6 mmol/L (3.5-5.1); Sodium Level 141 mmol/L (136-145)
[2022-03-15] MEDS: Acetaminophen 500 MG Tablet 1000 MG PO ×2 (06:41→13:04)
[2022-03-15] MEDS: TICAGRELOR 90 MG TABLET PO (09:34)
[2022-03-15] MEDS: Aspirin 81 MG TAB.CHEW PO (09:34)
[2022-03-15] MEDS: Furosemide 20 MG Tablet PO (09:35)
[2022-03-15] MEDS: Carvedilol 3.125 MG TABLET PO (09:36)
[2022-03-15] MEDS: Enoxaparin 40 MG/0.4 ML Syringe SC (09:39)
[2022-03-15 10:44] LABS: ACT Activated Clotting Time 348 sec (74-137)
[2022-03-15] MEDS: Lisinopril 5 MG Tablet PO (11:08)
--- NOTE | 2022-03-15 13:00 | CASEMGMT ---
ELY CARCAMO Readmission Note: Index: 02/19 - 02/20/22 Dx: CVA Current: 03/14/22 Lt carotid artery stent Pt was admitted on 02/19/22 with acute CVA. Pt had been independent prior to that admission. Pt lives with spouse and daughter who is a nurse lives next door. Pt's home is handicapped accessible and pt also had DME including shower chair, raised toilet, and a cane. Pt declined HHC or additional therapy upon discharge from index admission. Pt states she did follow-up with Dr. Mary and Dr. Leyva but was not able to get an appointment with her PCP Dr. Bellamy. She does have an appointment scheduled with him at the end of March. Pt states she has been taking the Brilinta and denies any concerns with obtaining this medication. Face to face with pt. ELY CARCAMO introduced self and role. Pt sitting up in chair an agreeable to discussion. Pt reports to have had continued right hand and arm weakness after discharge but feels it is almost back to normal. States she does have some difficulty if she needs to raise her right arm above her head. Pt states she has been doing well since discharge with her family support. States she plans to return home at discharge from this admission and denies any needs at this time. Pt states her daughter Keyona is a nurse and is able to assist her with any needs. Pt states she does have a LW and HPOA papers (HPOA-Daughter Keyona). Encouraged pt to bring these in to be scanned into her medical record when able. Will continue to follow and assist with any dc needs as determined. Janett Hernandez RN CM
--- NOTE | 2022-03-15 16:10 | PN.SURG_ITS ---
Subjective Subjective No issues overnight. Jace diet, no N/V, up to chair. No numbness/weakness/vision loss/speech difficulty. Pain well controlled. Objective Data Objective Data Vital Signs: Vital Signs Temp Pulse Resp BP Pulse Ox O2 Del Method 97.1 F L 72 16 93/55 L 96 Room Air 03/15/22 16:00 03/15/22 16:00 03/15/22 16:00 03/15/22 16:00 03/15/22 16:00 03/15/22 16:00 Oxygen Delivery Method Room Air Weight: 173 lb 11.588 oz Body Mass Index (BMI) 27.9 Intake & Output: Intake and Output for Last 24 Hours 03/13/22 03/14/22 03/15/22 23:59 23:59 23:59 Intake Total 238 / 238 2363.75 / 2363.75 Output Total 180 / 390 1825 / 1825 Balance 58 / -152 538.75 / 538.75 Lab / Micro Data Result Diagrams: 03/15/22 05:15 03/15/22 05:15 Labs: Laboratory Results - last 24 hr 03/14/22 08:30: Activated Clotting Time 155 H 03/14/22 10:30: Activated Clotting Time 215 H 03/14/22 10:40: Activated Clotting Time 395 H 03/14/22 11:25: Activated Clotting Time 348 H 03/15/22 05:15: WBC 7.1, RBC 3.28 L, Hgb 10.4 L, Hct 31.3 L, MCV 95.4, MCH 31.7, MCHC 33.2, RDW Std Deviation 49.9 H, RDW Coeff of Bettye 14.1, Plt Count 218, MPV 10.0, Immature Gran % (Auto) 0.300, Neut % (Auto) 66.4, Lymph % (Auto) 20.5, [place] % (Auto) 8.8, Eos % (Auto) 3.3, Baso % (Auto) 0.7, Absolute Neuts (auto) 4.7, Absolute Lymphs (auto) 1.45, Nucleated RBC % 0 03/15/22 05:15: Sodium 141, Potassium 3.6, Chloride 111 H, Carbon Dioxide 25.0, Anion Gap 5, BUN 11, Creatinine 0.63, Estim Creat Clear Calc 41.30, Est GFR (MDRD) Af Amer 117, Est GFR (MDRD) Non-Af 96, BUN/Creatinine Ratio 17.5, Glucose 92, Calcium 7.9 L Physical Exam Const alert, oriented x3, no apparent distress and healthy appearing General Appearance: cooperative; Negative for combative or lethargic Orientation / Consciousness: awake Exam Limitations: no limitations HEENT Head and Scalp: normocephalic and atraumatic Eyes EOMs intact bilaterally General Eye: normal appearance of both eyes Neck full ROM General: trachea midline Resp normal respiratory effort and no use of accessory muscles Effort and Inspection: Negative for labored, stridor or audible wheezes Cardio regular rate and regular rhythm Back/Spine Cervical Spine: cervical ROM normal Extremity full ROM, normal capillary refill and no clubbing, cyanosis or edema Skin no rashes or lesions noted Skin Narrative: Inc C/D/I no erythema Neuro oriented x3, CN's II-XII intact bilaterally, no focal motor deficits and no sensory deficits noted Psych thought process normal, cooperative, affect normal, speech normal and activity/motor behavior normal 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
--- NOTE | 2022-03-15 17:26 | DS.PCM_ITS ---
Providers Date of Admission: 03/14/22 Date of Discharge: 03/15/22 Primary Care Physician: Dr. 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 Code(s): I63.232 - Cerebral infarction due to unspecified occlusion or stenosis of left carotid arteries Medications at Discharge Home Medications carvedilol 3.125 mg tablet 3.125 mg PO BID heart 06/13/18 furosemide 20 mg tablet 20 mg PO DAILY fluid 06/13/18 lisinopril 5 mg tablet 5 mg PO DAILY blood pressure 06/13/18 aspirin 81 mg chewable tablet 81 mg PO BREAKFAST HEART 03/01/22 atorvastatin 80 mg tablet 80 mg PO QHS CHOLESTEROL 03/01/22 oxycodone 5 mg capsule 5 mg PO Q8H PRN pain 3 days #9 caps 03/15/22 ticagrelor 90 mg tablet (Brilinta) 90 mg PO BID BLOOD THINNER 30 days #60 tabs 03/15/22 Hospital Course Operations - (TCAR) Summary of Care Provided Hospital Course: Patient was routinely admitted for hemodynamic and neurologic monitoring following TCAR with Dr. Mary on 03/14/2022. The procedure was without complications and patient tolerated well. A CROW drain was placed after procedure to reduce risk of swelling/hematoma formation, this was removed on POD #1 without complication. The surgical incision was closed with absorbable sutures and skin glue. She has remained hemodynamically stable and neurologically intact throughout her hospital stay. She has tolerated diet progression, has been up to her chair, and pain is well controlled on oral regimen. No signs/symptoms of infection. Her blood pressure has been running on the low side today, and as such ask that she hold her home lisinopril for about 4-5 days. She does check her BPs at home. Ask that she check her BP at home daily over the next week, if her systolic BP reaches 140s or higher may restart lisinopril at that time. If it continues to remain lower, may hold until we see her next in office or until discusses with her PCP. She will call the office with any questions/concerns regarding this. She is medically stable for discharge. She will return to the office for follow- up as scheduled at which time serial imaging will be ordered. Physical Exam Const alert, oriented x3, no apparent distress and healthy appearing General Appearance: cooperative; Negative for combative or lethargic Orientation / Consciousness: awake Exam Limitations: no limitations HEENT Head and Scalp: normocephalic and atraumatic Eyes EOMs intact bilaterally General Eye: normal appearance of both eyes Neck full ROM General: trachea midline Resp normal respiratory effort and no use of accessory muscles Effort and Inspection: Negative for labored, stridor or audible wheezes Cardio regular rate and regular rhythm Back/Spine Cervical Spine: cervical ROM normal Extremity full ROM, normal capillary refill and no clubbing, cyanosis or edema Skin no rashes or lesions noted Skin Narrative: Inc C/D/I no erythema, drainage, foul odor, swelling/hematoma/bleeding Neuro oriented x3, CN's II-XII intact bilaterally, no focal motor deficits and no sensory deficits noted Psych thought process normal, cooperative, affect normal, speech normal and activity/motor behavior normal Weight / BMI Weight Weight: 173 lb 11.588 oz Body Mass Index (BMI) 27.9 ABG / Lab / Microbiology Data Result Diagrams: 03/15/22 05:15 03/15/22 05:15 Laboratory: Laboratory Results - last 24 hr 03/14/22 11:25: Activated Clotting Time 348 H 03/15/22 05:15: WBC 7.1, RBC 3.28 L, Hgb 10.4 L, Hct 31.3 L, MCV 95.4, MCH 31.7, MCHC 33.2, RDW Std Deviation 49.9 H, RDW Coeff of Bettye 14.1, Plt Count 218, MPV 10.0, Immature Gran % (Auto) 0.300, Neut % (Auto) 66.4, Lymph % (Auto) 20.5, [place] % (Auto) 8.8, Eos % (Auto) 3.3, Baso % (Auto) 0.7, Absolute Neuts (auto) 4.7, Absolute Lymphs (auto) 1.45, Nucleated RBC % 0 03/15/22 05:15: Sodium 141, Potassium 3.6, Chloride 111 H, Carbon Dioxide 25.0, Anion Gap 5, BUN 11, Creatinine 0.63, Estim Creat Clear Calc 41.30, Est GFR (MDRD) Af Amer 117, Est GFR (MDRD) Non-Af 96, BUN/Creatinine Ratio 17.5, Glucose 92, Calcium 7.9 L D/C Instructions Discharge Diet: No restrictions Lifting Restricted to (Lbs): 20 Lifting Restrictions: Do not lift greater than 20 pounds for 3 weeks Call your doctor if your incision/area has: Continuous Slow Oozing, Sudden Increased Bleeding, Increased Pain/ Swelling and Foul Smelling Discharge Call your doctor if you observe: Fever of 101 or Higher and Uncontrolled pain Remove Dressing in: 1 day Additional Dressing/Incision Instructions: May remove the small adhesive dressing covering drain site in 1 day. No need to cover after this, unless you would prefer to do so. The surgical glue covering the incision site will slowly peel off over the period of a couple of weeks. No need to cover incision site as glue will protect it. Additional Instructions: May shower in 1 day, okay for soap and water to rinse over the incision site, gently pat dry after. Do not submerge incision site in water (No baths) for 3 weeks. Do not lift greater than 20 pounds for 3 weeks. Continue to take aspirin and Plavix as directed. Do not drive while taking prescription pain medications. Hold your lisinopril for the next 4-5 days. Check your BP daily at home. If you systolic BP (top number) is greater than 140, restart your lisinopril at your usual dose. If your BP remains lower than that, please call the office to discuss. Follow-up in the office as scheduled on 03/27/2022. Please Follow Up With: Karlie Mcclain PA When: 03/27/2022 Meaningful Use Info Meaningful Use Diagnoses (Choose all that apply): None applicable Discharge Plan Admission Admit Date/Time: 03/14/22 06:30 Primary Reason for Your Visit: Left Carotid Artery Stent Attending Provider: Bonilla Mary Primary Care Provider: Shiv Bellamy Discharge Orders/Prescriptions Prescriptions: New oxycodone 5 mg capsule 5 mg PO Q8H PRN (Reason: pain) 3 Days Qty: 9 0RF Continued carvedilol 3.125 mg tablet 3.125 mg PO BID furosemide 20 mg tablet 20 mg PO DAILY atorvastatin 80 mg tablet 80 mg PO QHS aspirin 81 mg tablet,chewable 81 mg PO BREAKFAST Brilinta 90 mg tablet 90 mg PO BID 30 Days Qty: 60 0RF Held lisinopril 5 mg tablet 5 mg PO DAILY Hold Instructions: Resume on 03/20/22. Hold lisinopril. Check BP daily. Resume when systolic BP (top number) is greater than 140. Call office with questions/concerns. Referrals / Follow Up: Shiv Bellamy MD [Primary Care Provider] - Disposition Disposition (needs filled in before D/C Order can be placed): Home, Self Care Charges/Coding Visit Charges Inpatient E&M: 86322 Disch Hosp
== END 2022-03-15 18:20 | disposition home or self-care (01) | DRG 36 ==
LOC: ACINP 12:30 → ICU 12:37
PROVIDERS: Admitting Provider Surgery Trauma Surgery; PCP Internal Medicine Infectious Disease; Visit Provider Surgery Trauma Surgery
PROC: 037J3DZ Dilation of Left Common Carotid Artery with Intraluminal Device, Percutaneous Approach (ICD-10-PCS; CPT 37236; principal; 2022-03-14 07:40)
DX: I63.232 Cerebral infarction due to unspecified occlusion or stenosis of left carotid arteries (principal); I27.20 Pulmonary hypertension, unspecified; J44.9 Chronic obstructive pulmonary disease, unspecified; I10 Essential (primary) hypertension; E78.00 Pure hypercholesterolemia, unspecified; Z79.82 Long term (current) use of aspirin; Z79.899 Other long term (current) drug therapy; Z86.73 Personal history of transient ischemic attack (TIA), and cerebral infarction without residual deficits
CPT/HCPCS: 37215; 76937; 80048; 85025; 85347; 86850; 86900; 86901; 94668; 97162; 97165; 97802; 99252; A4648; C1769; C1876; C1884; C1894; J7030; J7120; Q9967; C1725; G0463; J2405

== ENCOUNTER → 2022-04-12 | Outpatient (CLI) | payer SELFPAY, OTHER ==
--- NOTE | 2022-04-12 10:11 | CDUL_ITS ---
Reason For Study: S/P Lt Carotid Stent Lt. Velocities/BP Prox CCA 106.0/21.2 cm/sec. Mid CCA 103.5/23.7 cm/sec. Dist CCA Pre/Prox Stent 63.0/15.1 cm/sec. Lt ICA Pre/Prox Stent 53.2/13.9 cm/sec. Lt ICA Prox Stent - 71.6/17.6 Lt ICA Mid Stent - 57.1/17.1 Lt ICA Dist Stent - 82.7/26.0. Dist ICA Post Stent 82.5/28.6 cm/sec. ICA/CCA Ratio - 0.80 Prox ECA 154.0/13.3 cm/sec. Lt. Vert. 49.5/10.2 cm/sec. Left Extracranial There is heterogeneous, irregular atherosclerotic plaque noted in the left common carotid artery. Patent Stent Visualized in Distal CCA and Prox-Mid ICA. There is heterogeneous, irregular atherosclerotic plaque noted in the left external carotid artery. The atherosclerotic plaque causes acoustic shadowing. Antegrade flow is noted in the left vertebral artery. VL/Carotid Unilateral Interpretation Summary Mild (<50%) stenosis left extracranial internal carotid. Patent stent with no stenosis Ordering Physician: Karlie Mcclain Referring Physician: Shiv Bellamy Performed By: Austin Castro RVT
== END | disposition home or self-care (01) ==
PROVIDERS: PCP Internal Medicine Infectious Disease; Referring Provider Physician Assistant; Visit Provider Physician Assistant
DX: I63.232 Cerebral infarction due to unspecified occlusion or stenosis of left carotid arteries (principal); Z48.812 Encounter for surgical aftercare following surgery on the circulatory system
CPT/HCPCS: 93882

== ENCOUNTER → 2022-09-20 | Outpatient (CLI) | payer SELFPAY, OTHER ==
--- NOTE | 2022-09-20 13:08 | CDU_ITS ---
Reason For Study: S/P L carotid stent Rt. Velocities/BP Lt. Velocities/BP Prox CCA 83.4/18.2 cm/sec. Prox CCA 119.5/24.9 cm/sec. Mid CCA 86.3/19.2 cm/sec. Mid CCA 85.1/26.2 cm/sec. Dist CCA 80.6/21.1 cm/sec. Distal CCA/Pre stent 67.9/20.0 cm/s. Prox ICA 72.1/16.3 cm/sec. Distal CCA/Prox stent 75.3/24.9 cm/s. Mid ICA 58.9/20.1 cm/sec. Prox ICA/Mid stent 56.9/13.9 cm/s. Dist ICA 97.1/30.0 cm/sec. Mid ICA/Dist stent 78.3/26.0 cm/s. Rt. ICA/CCA = 1.1. Dist ICA/Post stent 80.9/26.3 cm/s. Prox ECA 57.9/6.0 cm/sec. Lt. ICA/CCA = 1.0. Rt. Vert. 48.7/10.2 cm/sec. Prox ECA 119.5/10.2 cm/sec. Lt. Vert. 61.9/12.4 cm/sec. Right Extracranial There is intimal thickening but no significant atherosclerotic plaque noted in the right common carotid artery. There is heterogeneous, irregular atherosclerotic plaque noted in the right internal carotid artery. There is heterogeneous, irregular atherosclerotic plaque noted in the right external carotid artery. Antegrade flow is noted in the right vertebral artery. Left Extracranial There is heterogeneous, irregular atherosclerotic plaque noted in the left common carotid artery. There is heterogeneous, irregular atherosclerotic plaque noted in the left internal carotid artery. There is heterogeneous, irregular atherosclerotic plaque noted in the left external carotid artery. Antegrade flow is noted in the left vertebral artery. Patent stent visualized in Distal CCA and Prox-Mid ICA. Procedure Carotid Duplex [id number]. This is a Carotid Duplex examination using B-mode, color flow and specral Doppler. The exam was diagnostic. Exam performed in department. VL/Carotid Duplex Ultrasound Interpretation Summary Mild (<50%) stenosis right extracranial internal carotid. Mild (<50%) stenosis left extracranial internal carotid. Patent and antegrade vertebrals bilaterally. Ordering Physician: Karlie Mcclain Referring Physician: Karlie Mcclain Performed By: Ronen Brady RVT
== END | disposition home or self-care (01) ==
LOC: CVS 13:08
PROVIDERS: PCP Internal Medicine Infectious Disease; Referring Provider Physician Assistant; Visit Provider Physician Assistant
DX: Z48.812 Encounter for surgical aftercare following surgery on the circulatory system (principal); I63.232 Cerebral infarction due to unspecified occlusion or stenosis of left carotid arteries
CPT/HCPCS: 93880

== ENCOUNTER → 2023-04-29 | Outpatient (CLI) | payer SELFPAY ==
--- NOTE | 2023-04-29 09:58 | CDU_ITS ---
Reason For Study: S/P Lt TCAR Rt. Velocities/BP Lt. Velocities/BP Prox CCA 86.3/15.4 cm/sec. Prox CCA 90/15.4 cm/sec. Mid CCA 68.3/19.2 cm/sec. Mid CCA 74/21.1 cm/sec. Dist CCA 65.5/20.1 cm/sec. Dist CCA 54.1/12.6 cm/sec. Prox ICA 56/13.5 cm/sec. Prox ICA 32.5/7.2 cm/sec. Mid ICA 64.5/23.9 cm/sec. Mid ICA 56.4/18.4 cm/sec. Dist ICA 88.7/32.7 cm/sec. Dist ICA 88.1/27.7 cm/sec. Rt. ICA/CCA = 1.30. Lt. ICA/CCA = 1.19. Prox ECA 54.9/5.9 cm/sec. Prox ECA 81.5/9.7 cm/sec. Rt. Vert. 41.9/11.6 cm/sec. Lt. Vert. 44.8/15.1 cm/sec. Right Extracranial There is intimal thickening but no significant atherosclerotic plaque noted in the right common carotid artery. There is heterogeneous, irregular atherosclerotic plaque noted in the right internal carotid artery. There is heterogeneous, irregular atherosclerotic plaque noted in the right external carotid artery. Antegrade flow is noted in the right vertebral artery. Left Extracranial There is heterogeneous, irregular atherosclerotic plaque noted in the left common carotid artery. There is heterogeneous, irregular atherosclerotic plaque noted in the left internal carotid artery. Stent noted in the left CCA distal to ICA mid. There is heterogeneous, irregular atherosclerotic plaque noted in the left external carotid artery. Antegrade flow is noted in the left vertebral artery. Procedure Carotid Duplex [id number]. This is a Carotid Duplex examination using B-mode, color flow and specral Doppler. Exam performed in department. VL/Carotid Duplex Ultrasound Interpretation Summary Mild (<50%) stenosis right extracranial internal carotid. Mild (<50%) stenosis left extracranial internal carotid. Patent and antegrade vertebrals bilaterally. Ordering Physician: Karlie Moncada Referring Physician: Shiv Bellamy Performed By: Tia Navarrete RVT
== END | disposition home or self-care (01) ==
LOC: CVS 09:57
PROVIDERS: PCP Internal Medicine Infectious Disease; Referring Provider Physician Assistant; Visit Provider Physician Assistant
DX: I63.232 Cerebral infarction due to unspecified occlusion or stenosis of left carotid arteries (principal); Z48.812 Encounter for surgical aftercare following surgery on the circulatory system
CPT/HCPCS: 93880

== ENCOUNTER → 2024-10-21 | Outpatient (CLI) | payer OTHER, SELFPAY ==
--- OUTSIDE RECORDS SUMMARY | 2024-10-21 22:23 | XMS RPT_ITS | CCD ---
[facility] Organization [facility] Providers Care Event Decorator Name Role Phone Dr. Stefan Light Emergency Provider [phone] Dr. Von Gutierrez Primary Care Provider Dr. Trina Lehman Admit Provider Dr. Trina Lehman Attending Provider Dr. Trina Lehman Other Provider Dr. Sebastian Dooley Attending Provider [phone] Bonilla Mary Attending Provider [phone] Bonilla Mary Other Provider Dr. Von Gutierrez Referring Provider Dr. Slava Leyva Attending Provider Dr. Bonilla Mary Admit Provider Dr. Trina Lehman Referring Provider Johny ZAMBRANO, JUAN MANUEL Ziegler Attending Provider Dr. Von Gutierrez Primary Care Provider Dr. Bonilla Mary Attending Provider Dr. Von Gutierrez Primary Care Provider Dr. Bonilla Mary Attending Provider Moncada, Karlie Referring Unavailable Bonilla Mary Attending Unavailable Von Gutierrez Primary Care Unavailable Moncada, Karlie Referring Unavailable Bonilla Mary Attending Unavailable Von Gutierrez Primary Care Unavailable Moncada, Karlie Attending Unavailable Moncada, Karlie Referring Unavailable Von Gutierrez Primary Care Unavailable Moncada, Karlie Attending Unavailable Moncada, Karlie Referring Unavailable Von Gutierrez Primary Care Unavailable Von Gutierrez Referring Unavailable Karlie Moncada Attending Unavailable Von Gutierrez Primary Care Unavailable VON GUTIERREZ MD Primary Care Unavailable VON GUTIERREZ MD Admitting Unavailable VON GUTIERREZ MD Attending Unavailable VON GUTIERREZ MD Consulting Unavailable PROVIDER, UNKNOWN Consulting Unavailable PROVIDER, UNKNOWN Consulting Unavailable PROVIDER, UNKNOWN Consulting Unavailable Mia PAGE, Dr. Chaney Primary Care Provider [phone] Dr. Von Gutierrez MD Referring Provider Serjio Owens Attending Provider Medications Current Medications Medication Drug Class(es) Dates Sig (Normalized) Sig (Original) acetaminophen 500 mg oral tablet (8 sources) Start: 05-30-2023 take 1 tablet by mouth every six hours as needed Acetaminophen (Tylenol Extra Strength) 500 mg tablet Active 500 mg PO EVERY 6 HOURS as needed May 30, 2023 12:00am Start: 02-19-2022 End: 02-20-2022 take 1 tablet by mouth once daily as needed for pain Acetaminophen 500 mg Tablet Discontinued 500 mg PO DAILY as needed for Pain February 19, 2022 1:00am February 20, 2022 6:27pm aspirin 81 mg chewable tablet (18 sources) Platelet Aggregation Inhibitor, Nonsteroidal Anti-inflammatory Drug Start: 02-20-2022 End: 03-01-2022 take 1 tablet by mouth at breakfast Aspirin 81 mg tablet,chewable Active 81 mg PO WITH BREAKFAST March 01, 2022 9:18am HEART Start: 02-19-2022 End: 02-20-2022 Aspirin (Aspirin Low-Strengt h) 81 mg Tablet,Delayed Release (Dr/Ec) Discontinued 162 mg PO DAILY as needed for heart health February 19, 2022 1:00am February 20, 2022 6:27pm carvedilol 3.125 mg oral tablet (7 sources) alpha-Adrenergic Chris, beta-Adrenergic Chris Start: 06-13-2018 take 1 tablet by mouth twice daily Carvedilol 3.125 mg tablet Active 3.125 mg PO TWICE A DAY June 13, 2018 12:00am heart furosemide 20 mg oral tablet (7 sources) Loop Diuretic Start: 06-13-2018 take 1 tablet by mouth once daily Furosemide 20 mg tablet Active 20 mg PO DAILY June 13, 2018 12:00am fluid nitrofurantoin, macrocrystals 25 mg / nitrofurantoin, monohydrate 75 mg oral capsule (1 source) Nitrofuran Antibacterial Start: 10-21-2024 take 1 capsule by mouth every twelve hours at mealtime Nitrofurantoin Monohyd/M-Cryst (Macrobid) 100 mg capsule Active 100 mg PO Q12H 14 7 0 October 21, 2024 12:00am October 27, 2024 12:00am must administer with a meal/food phenazopyridine hydrochloride 100 mg oral tablet (1 source) Start: 10-21-2024 take 1 tablet by mouth three times daily as needed for pain Phenazopyridine (Pyridium) 100 mg tablet Active 100 mg PO THREE TIMES A DAY as needed for pain 6 0 October 21, 2024 12:00am ubidecarenone 100 mg oral capsule (1 source) Start: 05-30-2023 Coenzyme Q10 (Coq-10) 100 mg capsule Active 200 mg PO DAILY May 30, 2023 12:00am Completed/Discontinued Medications Medication Drug Class(es) Dates Sig (Normalized) Sig (Original) Albuterol Sulfate (Proair Hfa) 90 mcg/actuation HFA aerosol inhaler (7 sources) Start: 06-13-2018 End: 06-19-2018 Albuterol Sulfate (Proair Hfa) 90 mcg/actuation HFA aerosol inhaler Discontinued 1 NMA INHALATION EVERY 6 HOURS as needed June 13, 2018 12:00am June 19, 2018 3:06pm Start: 06-13-2018 End: 06-19-2018 take 1 puff(s) by inhalation every six hours Albuterol Sulfate (Proair Hfa) 90 mcg/actuation HFA aerosol inhaler Discontinued 1 PUFF INHALATION EVERY 6 HOURS June 13, 2018 12:00am June 19, 2018 3:06pm Start: 06-13-2018 End: 06-19-2018 take 1 puff(s) by inhalation every six hours Albuterol Sulfate (Proair Hfa) 90 mcg/actuation HFA aerosol inhaler Discontinued 1 PUFF INHALATION EVERY 6 HOURS June 12, 2018 11:00pm June 19, 2018 2:06pm atorvastatin 80 mg oral tablet (15 sources) HMG-CoA Reductase Inhibitor Start: 02-20-2022 End: 03-20-2022 take 1 tablet by mouth at bedtime Atorvastatin 80 mg tablet Discontinued 80 mg PO AT BEDTIME March 01, 2022 9:18am March 20, 2022 2:24pm CHOLESTEROL clopidogrel 75 mg oral tablet (4 sources) P2Y12 Platelet Inhibitor Start: 03-22-2022 End: 05-30-2023 take 1 tablet by mouth once daily Clopidogrel (Plavix) 75 mg tablet Discontinued 75 mg PO DAILY 30 2 March 22, 2022 1:00am May 30, 2023 9:45am 120 actuat fluticasone propionate 0.044 mg/actuat metered dose inhaler (7 sources) Corticosteroid Start: 06-13-2018 End: 06-19-2018 Fluticasone Propionate (Flovent Hfa) 44 mcg/actuation HFA aerosol inhaler Discontinued 2 NMA INHALATION TWICE A DAY June 13, 2018 12:00am June 19, 2018 3:06pm Start: 06-13-2018 End: 06-19-2018 Fluticasone Propionate (Flov ent Hfa) 44 mcg/actuation HFA aerosol inhaler Discontinued 2 INH INHALATION TWICE A DAY June 13, 2018 12:00am June 19, 2018 3:06pm lisinopril 5 mg oral tablet (7 sources) Angiotensin Converting Enzyme Inhibitor Start: 06-13-2018 End: 05-30-2023 take 1 tablet by mouth once daily Lisinopril 5 mg tablet Discontinued 5 mg PO DAILY June 13, 2018 12:00am May 30, 2023 9:45am blood pressure On Hold: Resume on 03/20/22. Hold lisinopril. Check BP daily. Resume when systolic BP (top number) is greater than 140. Call office with questions/concerns. oxyCODONE hydrochloride 5 mg oral capsule (5 sources) Opioid Agonist Start: 03-15-2022 End: 05-30-2023 take 1 capsule by mouth every eight hours as needed for pain Oxycodone 5 mg capsule Discontinued 5 mg PO Q8H as needed for pain 9 3 0 March 15, 2022 May 30, 2023 9:45am Postoperative pain Other acute postprocedural pain ticagrelor 90 mg oral tablet (16 sources) Start: 02-20-2022 End: 05-30-2023 take 1 tablet by mouth twice daily Ticagrelor (Brilinta) 90 mg tablet Discontinued 90 mg PO TWICE A DAY 60 30 0 March 15, 2022 6:51pm May 30, 2023 9:45am BLOOD THINNER On Hold: Order Changed Problems Active Problems Problem Classification Problem Date Documented Date Episodic/Chronic Acute cerebrovascular disease (20 sources) 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; Translations: [Cerebral infarction due to unspecified occlusion or stenosis of left carotid arteries] Onset: 05-03-2023 Chronic Asthma (7 sources) Asthma; Translations: [Unspecified asthma, uncomplicated] 06-13-2018 Chronic Chronic obstructive pulmonary disease and bronchiectasis (9 sources) Chronic obstructive lung disease; Translations: [Chronic obstructive pulmonary disease, unspecified] 06-13-2018 Chronic Congestive heart failure; nonhypertensive (7 sources) Congestive heart failure; Translations: [Heart failure, unspecified] 06-19-2018 Chronic Genitourinary symptoms and ill-defined conditions (1 source) Urinary symptoms ; Translations: [Unspecified symptoms and signs involving the genitourinary system] 10-21-2024 Episodic Other aftercare (1 source) Surgical follow-up; Translations: [Encounter for surgical aftercare following surgery on the circulatory system] 05-30-2023 Episodic Other connective tissue disease (6 sources) Muscle weakness of upper limb; Translations: [Other symptoms and signs involving the musculoskeletal system] 02-19-2022 Episodic Other connective tissue disease (3 sources) Other symptoms and signs involving the musculoskeletal system; Translations: [Other musculoskeletal symptoms referable to limbs] Episodic Other lower respiratory disease (7 sources) Dyspnea on exertion; Translations: [Other forms of dyspnea] 06-13-2018 Episodic Pulmonary heart disease (7 sources) Pulmonary hypertension; Translations: [Pulmonary hypertension, unspecified] 03-02-2022 Chronic Urinary tract infections (1 source) Urinary tract infectious disease; Translations: [Urinary tract infection, site not specified] 10-21-2024 Episodic Past or Other Problems Problem Classification Problem Date Documented Date Episodic/Chronic Other aftercare (1 source) Encounter for surgical aftercare following surgery on the circulatory system; Translations: [Encounter for surgical aftercare following surgery on the circulatory system] Onset: 09-24-2022 Episodic Residual codes; unclassified (5 sources) History of cardiac catheterization; Translations: [Other specified postprocedural states] Onset: 06-11-2018 03-01-2022 Episodic Comment on above: LEFT HEART ASSESSMEN TLeft Ventricular Ejection Fraction: by LV Gram 55 %Normal LV wall motionElevated Left Ventricular End Diastolic PressureLVEDP: 28 mmHgRIGHT HEART ASSESSMENTThermal CO: 5.44 Thermal CI: 2.89Fick CO: 8.77 Denys CI: 4.66PW: 24/12 10PA: 33/13 22RV: 37/3 9RA: 9/6 5PVR: 176 SVR: 1632Aortic Valve Area: >3.50 Aortic Valve Index: 1.86 Aortic Valve Mean Gradient: 4.3Mitral Valve Area: 3.40 Mitral Valve index: 1.81 Mitral Valve Mean Gradient: 10Right Heart pressures - elevatedPulmonary Hypertension MildIntracardiac shunting: NoneLEFT MAIN: Angiographically normal; LEFT ANTERIOR DESCENDING ARTERY: Angiographically normal; CIRCUMFLEX ARTERY: Angiographically normal; RIGHT CORONARY ARTERY: Angiographically normal; VALVE FINDINGS:Normal Aortic Valve functionNormal Mitral Valve functionAORTIC ROOT:Angiographically normal per cardiac cath Dr. Leyva 06/26/18 Results Test Name Value Interpretation Reference Range Facility CBC (NO DIFF)on 08-25-2024 CBC panel Auto (Bld) Normal [facility] Comment on above: Result Comment: CBC( WITHOUT DIFFERENTIAL) Performed By: #### 2 [id number] #### [facility],[address] [place] [address] Erythrocyte distribution width (RBC) [Ratio] 13.7 % Normal 12.0 - 15.6 [facility] Comment on above: Performed By: #### 2 07961 #### [facility],[address] [place], [place] [id number] Hematocrit (Bld) [Volume fraction] 39.3 % Normal 34.0 - 46.0 [facility] Comment on above: Performed By: #### 2 37439 #### [facility],[address] [place], [place] [id number] Hemoglobin (Bld) [Mass/Vol] 13.4 g/dL Normal 12.0 - 16.0 [facility] Comment on above: Performed By: #### 2 12715 #### [facility],[address] [place] [address] 14326 MCH (RBC) [Entitic mass] 32 pg Normal 27 - 33 [facility] Comment on above: Performed By: #### 2 38342 #### [facility],[address] [place] [address] 64363 MCHC 34 X10 3 Normal 32 - 36 [facility] Comment on above: Performed By: #### 2 99191 #### [facility],[address] [place] [address] 33929 MCV (RBC) [Entitic vol] 93 fL Normal 80 - 99 [facility] Comment on above: Performed By: #### 2 40498 #### [facility],[address] [place] [address] 54109 PLATELET 278 x10EE3/UL Normal 150 - 450 [facility] Comment on above: Performed By: #### 2 68191 #### [facility],[address] [place] [address] 78743 Platelet mean volume (Bld) [Entitic vol] 8.1 fL Normal 6.6 - 10.5 [facility] Comment on above: Performed By: #### 2 05785 #### [facility],[address] [place] [address] 95867 RBC 4.23 x 10EE6/UL Normal 4.10 - 5.30 [facility] Comment on above: Performed By: #### 2 66347 #### [facility],[address] [place] [address] 29795 WBC 7.5 x 10EE3/UL Normal 4.5 - 10.8 [facility] Comment on above: Performed By: #### 2 12020 #### [facility],[address] [place] [address] 27593 CMP with eGFRon 08-25-2024 AGE 83 years Normal [facility] Comment on above: Performed By: #### 2 10165 #### [facility],[address] [place] [address] 85710 Albumin [Mass/Vol] 3.2 g/dL Low 3.4 - 5.0 [facility] Comment on above: Performed By: #### 2 04597 #### [facility],[address] [place] [address] 06435 Albumin/Globulin [Mass ratio] 0.8 {ratio} Low 0.9 - 1.6 [facility] Comment on above: Performed By: #### 2 13894 #### [facility],[address] [place] [address] 81642 ALK PHOS 71 U/L Normal 46 - 116 [facility] Comment on above: Performed By: #### 2 07937 #### [facility],[address] [place] [address] 98335 ALT [Catalytic activity/Vol] 23 U/L Normal 16 - 63 [facility] Comment on above: Performed By: #### 2 34075 #### [facility],[address] [place] [address] 89223 Anion gap [Moles/Vol] 14 mmol/L Normal 10 - 20 [facility] Comment on above: Performed By: #### 2 04445 #### [facility],[address] [place] [address] 09753 AST [Catalytic activity/Vol] 16 U/L Normal 13 - 39 [facility] Comment on above: Performed By: #### 2 70867 #### [facility],[address] [place] [address] 65659 B/C RATIO 20 ratio Normal 0 - 30 [facility] Comment on above: Performed By: #### 2 95933 #### [facility],[address] [place] [address] 61653 Bilirubin [Mass/Vol] 0.5 mg/dL Normal 0.2 - 1.0 [facility] Comment on above: Performed By: #### 2 65614 #### [facility],[address] [place] [address] 32536 Calcium [Mass/Vol] 8.5 mg/dL Normal 8.5 - 10.1 [facility] Comment on above: Performed By: #### 2 76391 #### [facility],[address] [place], [place] [id number] Chloride [Moles/Vol] 106 mmol/L Normal 98 - 107 [facility] Comment on above: Performed By: #### 2 45830 #### [facility],[address] [place], [place] [id number] CMP with eGFR Normal [facility] Comment on above: Result Comment: COMP REHENSIVE METABOLIC PANEL Performed By: #### 2 50874 #### [facility],[address] [place] [address] CO2 [Moles/Vol] 27.6 mmol/L Normal 21.0 - 32.0 [facility] Comment on above: Performed By: #### 2 60929 #### [facility],[address] [place], [place] [id number] Creatinine [Mass/Vol] 0.87 mg/dL Normal 0.55 - 1.02 [facility] Comment on above: Performed By: #### 2 34680 #### [facility],[address] [place], [place] [id number] GFR/1.73 sq M.predicted among non-blacks MDRD (S/P/Bld) [Vol rate/Area] mL/min/{1.73_m2} Normal 60 - 999 [facility] Comment on above: Performed By: #### 2 46670 #### [facility],[address] [place] [address] Result Comment: ACCO RDING TO THE NATIONAL KIDNEY DISEASE EDUCATION PROGRAM(NKDE), A NORMAL eGFR IS A VALUE GREATER THAN OR EQUAL TO 60 ML/MIN/1.73 SQ METERS. CHRONIC KIDNEY DISEASE: <60mL/MIN/1.73 SQ METERS KIDNEY FAILURE: <15mL/MIN/1.73 SQ METERS THIS TEST SHOULD ONLY BE USED FOR PATIENTS 18 YEARS OF AGE AND OLDER. Globulin (S) [Mass/Vol] 3.8 g/dL Normal 1.5 - 3.8 [facility] Comment on above: Performed By: #### 2 78918 #### [facility],[address] [place] [address] 80841 Glucose [Mass/Vol] 94 mg/dL Normal 74 - 106 [facility] Comment on above: Performed By: #### 2 14172 #### [facility],[address] [place] [address] 57921 Potassium [Moles/Vol] 4.3 mmol/L Normal 3.5 - 5.1 [facility] Comment on above: Performed By: #### 2 77033 #### [facility],[address] [place] [address] 53403 Protein [Mass/Vol] 7.0 g/dL Normal 6.4 - 8.2 [facility] Comment on above: Performed By: #### 2 90881 #### [facility],[address] [place] [address] 57033 Sodium [Moles/Vol] 143 mmol/L Normal 136 - 145 [facility] Comment on above: Performed By: #### 2 27630 #### [facility],[address] [place] [address] 94295 Urea nitrogen [Mass/Vol] 17 mg/dL Normal 7 - 18 [facility] Comment on above: Performed By: #### 2 59228 #### [address] [address] HEMOGLOBIN A1C (POM)on 08-25 Glucose [Mass/Vol] 137.0 mg/dL High 0.0 - 0.0 [facility] Comment on above: Result Comment: BLDo HEMOGLOBIN A1C REFERENCE RANGESBLDo Suggested Diagnosis HbA1c(%) HbA1C (mmol/mol Diabetic >/=6.5 >/=48 Prediabetes 5.7 - 6.4 39 - 47 Normal <5.7 <39 Performed By: #### 2 25838 #### [facility],[address] [place] [address] 72204 HbA1c (Bld) [Mass fraction] 6.4 % Normal 0.0 - 6.5 [facility] Comment on above: Performed By: #### 2 59600 #### [facility],[address] [place] [address] 06022 LIPID PROFILEon 08-25-2024 Cholesterol [Mass/Vol] 122 mg/dL Normal 0 - 240 [facility] Comment on above: Performed By: #### 2 27532 #### [facility],[address] [place] [address] 79386 Cholesterol in HDL [Mass/Vol] 51 mg/dL Normal 40 - 60 [facility] Comment on above: Performed By: #### 2 73591 #### [facility],[address] [place] [address] 87412 Cholesterol in LDL [Mass/Vol] 52 mg/dL Normal 0 - 129 [facility] Comment on above: Performed By: #### 2 76314 #### [facility],[address] [place] [address] 68615 Cholesterol.total/Bibi sterol in HDL [Mass ratio] 2.4 {ratio} Normal 0.0 - 5.0 [facility] Comment on above: Performed By: #### 2 73344 #### [facility],[address] [place] [address] 44603 Lipid 1996 panel Normal [facility] Comment on above: Result Comment: LIPI D PROFILE Performed By: #### 2 24667 #### [facility],[address] [place] [address] 61537 Triglyceride [Mass/Vol] 94 mg/dL Normal 0 - 150 [facility] Comment on above: Performed By: #### 2 24722 #### [facility],[address] [place] [address] 77463 TSHon 08-25-2024 TSH Qn 2.20 m[IU]/L Normal 0.35 - 3.74 [facility] Comment on above: Performed By: #### 2 88073 #### [facility],[address] [place], [place] [id number] URINALYSISon 08-25-2024 Amorphous NONE Normal [facility] Comment on above: Performed By: #### 2 80614 #### [facility],[address] [place] [address] Bacteria 3+ Normal [facility] Comment on above: Performed By: #### 2 57243 #### [facility],[address] [place] [address] Bilirubin Ql (U) Negative Normal NORMAL: NEGATIVE [facility] Comment on above: Performed By: #### 2 52441 #### [facility],[address] [place] [address] Casts NONE Normal [facility] Comment on above: Performed By: #### 2 82412 #### [facility],[address] [place], [place] [phone] Clarity (U) sl.cloudy Normal NORMAL: CLEAR [facility] Comment on above: Performed By: #### 2 37272 #### [facility],[address] [place], [place] [id number] Color (U) yellow Normal NORMAL: YELLOW [facility] Comment on above: Performed By: #### 2 66520 #### [facility],[address] [place] [address] 63591 Crystals LM Nom (Urine sed) NONE Normal [facility] Comment on above: Performed By: #### 2 81927 #### [facility],[address] [place], [place] [id number] Epi Cells OCC Normal [facility] Comment on above: Performed By: #### 2 04320 #### [facility],[address] [place] [address] 58981 Glucose Ql (U) NORM Normal NORMAL: NORMAL [facility] Comment on above: Performed By: #### 2 97022 #### [facility],[address] [place] [address] 18973 Hemoglobin Ql (U) 50 Abnormal NORMAL: NEGATIVE [facility] Comment on above: Performed By: #### 2 73790 #### [facility],[address] [place] [address],[facility] [address] Ketone Negative Normal NORMAL: NEGATIVE [facility] Comment on above: Performed By: #### 2 71735 #### [facility],[address] [place] [address] 24659 Leukocytes 500 Abnormal NORMAL: NEGATIVE [facility] Comment on above: Performed By: #### 2 18809 #### [facility],[address] [place] [address] 60407 Mucous NONE Normal [facility] Comment on above: Performed By: #### 2 16749 #### [facility],[address] [place] [address] 47469 Nitrite Ql (U) Positive Normal NORMAL: NEGATIVE [facility] Comment on above: Performed By: #### 2 72573 #### [facility],[address] [place] [address] 35806 pH (U) 6 [pH] Normal NORMAL: 5.0-8.0 [facility] Comment on above: Performed By: #### 2 20138 #### [facility],[address] [place] [address] 92337 Protein Ql (U) 30 Abnormal NORMAL: NEGATIVE [facility] Comment on above: Performed By: #### 2 53300 #### [facility],[address] [place] [address] 17525 Rbc 0-5 Normal 0-3/hpf [facility] Comment on above: Performed By: #### 2 10012 #### [facility],[address] [place] [address] Sp Pattison 1.015 Normal NORMAL: 1.010-1.030 [facility] Comment on above: Performed By: #### 2 06040 #### [facility],[address] [place] [address] Specimen Type R Normal [facility] Comment on above: Performed By: #### 2 25861 #### [facility],[address] [place] [address] Urinalysis dipstick W Reflex Microscopic panel (U) SEE BELOW Normal [facility] Comment on above: Result Comment: MICR OSCOPIC Performed By: #### 2 83464 #### [facility],[address] [place] [address] Urobilinog NORM Normal NORMAL: NORMAL [facility] Comment on above: Performed By: #### 2 72607 #### [facility],[address] [place] [address] WBC (U) [#/Vol] /uL Normal 0-5/hpf [facility] Comment on above: Performed By: #### 2 20422 #### [facility],[address] [place] [address] Yeast NONE Normal [facility] Comment on above: Performed By: #### 2 91729 #### [facility],[address] [place] [address] MR/BMS.BVSon 05-30-2023 MR/BMS.BVS [facility] [address] [place], [place] [address]. [address] [place] [address] OFFICE VISIT Date of Service: 05/30/23 MR#: [id number] Acct: [id number] Name: NATALY MARTINEZ Rep #: [id number] : 1940 Provider: JUAN MANUEL Hawkins Age/Sex: 82/F Location: BMS.BVS Status: Signed Intake Vital Signs 03/15/22 09:44 05/30/23 09:43 Height 5 ft 6 in Weight: 173 lb BP 145/74 H Blood Pressure Location Lt brachial Position Sitting Respiration 14 Pulse 72 Pulse Source Monitor Temp 98.2 F Temp Source Temporal Pulse Oximetry (%) 94 Oxygen Delivery Method room air Intake Visit Reasons: 1 Y F/U Is patient in pain?: No Allergies No Known Allergies Allergy (Verified 05/30/23 09:44) Medications carvedilol 3.125 mg tablet 3.125 mg PO BID heart 06/13/18 [History Confirmed 05/30/23] furosemide 20 mg tablet 20 mg PO DAILY fluid 06/13/18 [History Confirmed 05/30/23] aspirin 81 mg chewable tablet 81 mg PO BREAKFAST HEART 03/01/22 [History Confirmed 05/30/23] atorvastatin 80 mg tablet 80 mg PO QHS CHOLESTEROL #90 tabs 03/20/22 [Rx Confirmed 05/30/23] acetaminophen 500 mg tablet (Tylenol Extra Strength) 500 mg PO Q6H PRN 05/30/23 [History Confirmed 05/30/23] coenzyme Q10 100 mg capsule (CoQ-10) 200 mg PO DAILY 05/30/23 [History Confirmed 05/30/23] PFSH Medical History Acute CVA (cerebrovascular accident) Arthritis Asthma Cardiology follow-up encounter CHF (congestive heart failure) COPD (chronic obstructive pulmonary disease) COPD (chronic obstructive pulmonary disease) Heartburn High cholesterol History of CHF (congestive heart failure) History of echocardiogram History of edema History of pain when walking History of stress test Hypertension Leg cramps Low iron Non-smoker Post-menopausal Preoperative cardiovascular examination Shortness of breath on exertion Status post left heart catheterization (LHC) ( 06/26/18) TIA (transient ischemic attack) Wears glasses Wears partial dentures Surgical History History of breast surgery History of right and left heart catheterization (LHC) ( 06/26/18) Family History Father CAD (coronary artery disease) Mother CHF (congestive heart failure) Brother Hypertension Heart disease Other Cancer High cholesterol Seizures Social History Smoking Status: Never smoker alcohol intake: never substance use type: does not use caffeine: Yes Type: coffee Number of servings: 1 HPI HPI HPI: NATALY MARTINEZ, is a 82 F who presents to the office today for one year follow-up of her carotid artery disease. She is s/p L TCAR on 03/15/22 which was performed due to symptomatic L ICA stenosis. Her subsequent carotid duplexes have all been satisfactory with <50% stenosis bilaterally. She is doing very well. She denies any pain at the incision site. No new known CVA/TIA or any episodes of unilateral weakness, sensory deficits, facial drooping, dysarthria, or vision loss. She has no complaints today. She denies any significant changes in her medical history since her last visit. She is still taking ASA and statin as prescribed without issue. ROS General General: No weight change, appetite, fatigue, colon cancer, breast cancer or weakness HEENT HEENT: No difficulty swallowing, eye injury, eye surgery, swollen glands or hoarseness Endo Endocrine: No thyroid disease, diabetes mellitus, thyroid cancer, Hair loss, heat intolerance or cold intolerance Skin Skin: No rash or changing moles Musc Musculoskeletal: No back problems, arthritis, rheumatoid arthritis, gout or joint pain Cardio Cardiovascular: No murmur, pacemaker, heart disease, atrial fibrillation, high blood pressure, heart attack, heart stent, palpitations, shortness of breat with exertion or chest pain Psych Psychiatric: No depression, anxiety or hearing voices Resp Respiratory: No shortness of breath, No sleep apnea, Yes cough, Yes COPD, No asthma, No emphysema and Yes wheezing Gastro Gastrointestinal: No abdominal pain, No nausea or vomiting, No diarrhea, No constipation, No blood in stool, No acid reflux, No hemorrhoids, No ulcers, No gallbladder problem and No black,tarry stools Srinivas Hematologic: Yes blood thinners, No blood disorders, No bleeding, No anemia and No blood clots Additional Details: asa Neuro Neurologic: No system reviewed and no additional complaints, except as documented, No as per HPI, No abnormal gait, No abnormal hearing, No abnormal movements, No abnormal speech, No behavioral changes, No burning sensations, No confusion, No convulsions, No disequilibrium, No dizziness, No locali (more content not included)... Normal [facility] Carotid Duplex Ultrasoundon 04-29-2023 Carotid Duplex Ultrasound [facility] [address] [place] [address] Carotid Duplex Ultrasound 04/29/23 [facility] MR#: [id number] Acct: [id number] Name: NATALY MARTINEZ Rep #: [id number] : 1940 82 From: Bonilla Mary MD Attending Dr: JUAN MANUEL Hawkins Status: REG CLI Ordering Dr: Karlie Moncada Date: 04/29/23 Location: [facility] Sex: F C Admitted: Reason For Study: S/P Lt TCAR Rt. Velocities/BP Lt. Velocities/BP Prox CCA 86.3/15.4 cm/sec. Prox CCA 90/15.4 cm/sec. Mid CCA 68.3/19.2 cm/sec. Mid CCA 74/21.1 cm/sec. Dist CCA 65.5/20.1 cm/sec. Dist CCA 54.1/12.6 cm/sec. Prox ICA 56/13.5 cm/sec. Prox ICA 32.5/7.2 cm/sec. Mid ICA 64.5/23.9 cm/sec. Mid ICA 56.4/18.4 cm/sec. Dist ICA 88.7/32.7 cm/sec. Dist ICA 88.1/27.7 cm/sec. Rt. ICA/CCA = 1.30. Lt. ICA/CCA = 1.19. Prox ECA 54.9/5.9 cm/sec. Prox ECA 81.5/9.7 cm/sec. Rt. Vert. 41.9/11.6 cm/sec. Lt. Vert. 44.8/15.1 cm/sec. Right Extracranial There is intimal thickening but no significant atherosclerotic plaque noted in the right common carotid artery. There is heterogeneous, irregular atherosclerotic plaque noted in the right internal carotid artery. There is heterogeneous, irregular atherosclerotic plaque noted in the right external carotid artery. Antegrade flow is noted in the right vertebral artery. Left Extracranial There is heterogeneous, irregular atherosclerotic plaque noted in the left common carotid artery. There is heterogeneous, irregular atherosclerotic plaque noted in the left internal carotid artery. Stent noted in the left CCA distal to ICA mid. There is heterogeneous, irregular atherosclerotic plaque noted in the left external carotid artery. Antegrade flow is noted in the left vertebral artery. Procedure Carotid Duplex [id number]. This is a Carotid Duplex examination using B-mode, color flow and specral Doppler. Exam performed in department. VL/Carotid Duplex Ultrasound Interpretation Summary Mild (<50%) stenosis right extracranial internal carotid. Mild (<50%) stenosis left extracranial internal carotid. Patent and antegrade vertebrals bilaterally. Ordering Physician: Karlie Moncada Referring Physician: Von Gutierrez Performed By: Tia Navarrete, T 04/29/23 1334 Date Bonilla Mary MD CC: JUAN MANUEL Hawkins; Dr. Von Gutierrez MD Date Dictated: 04/29/23 1007 Date Transcribed: 04/29/23 1334 Manager Night: Signed Normal [facility] Carotid Duplex Ultrasoundon 09-20-2022 Carotid Duplex Ultrasound [facility] [address] [place] [address] Carotid Duplex Ultrasound 09/20/22 1313 MR#: [id number] Acct: [id number] Name: NATALY MARTINEZ Rep #: [id number] : 1940 81 From: Bonilla Mary MD Attending Dr: JUAN MANUEL Rodriguez Status: RE G CLI Ordering Dr: Karlie Mcclain Date: 09/20/22 Location: [facility] Sex: F C Admitted: Reason For Study: S/P L carotid stent Rt. Velocities/BP Lt. Velocities/BP Prox CCA 83.4/18.2 cm/sec. Prox CCA 119.5/24.9 cm/sec. Mid CCA 86.3/19.2 cm/sec. Mid CCA 85.1/26.2 cm/sec. Dist CCA 80.6/21.1 cm/sec. Distal CCA/Pre stent 67.9/20.0 cm/s. Prox ICA 72.1/16.3 cm/sec. Distal CCA/Prox stent 75.3/24.9 cm/s. Mid ICA 58.9/20.1 cm/sec. Prox ICA/Mid stent 56.9/13.9 cm/s. Dist ICA 97.1/30.0 cm/sec. Mid ICA/Dist stent 78.3/26.0 cm/s. Rt. ICA/CCA = 1.1. Dist ICA/Post stent 80.9/26.3 cm/s. Prox ECA 57.9/6.0 cm/sec. Lt. ICA/CCA = 1.0. Rt. Vert. 48.7/10.2 cm/sec. Prox ECA 119.5/10.2 cm/sec. Lt. Vert. 61.9/12.4 cm/sec. Right Extracranial There is intimal thickening but no significant atherosclerotic plaque noted in the right common carotid artery. There is heterogeneous, irregular atherosclerotic plaque noted in the right internal carotid artery. There is heterogeneous, irregular atherosclerotic plaque noted in the right external carotid artery. Antegrade flow is noted in the right vertebral artery. Left Extracranial There is heterogeneous, irregular atherosclerotic plaque noted in the left common carotid artery. There is heterogeneous, irregular atherosclerotic plaque noted in the left internal carotid artery. There is heterogeneous, irregular atherosclerotic plaque noted in the left external carotid artery. Antegrade flow is noted in the left vertebral artery. Patent stent visualized in Distal CCA and Prox-Mid ICA. Procedure Carotid Duplex [id number]. This is a Carotid Duplex examination using B-mode, color flow and specral Doppler. The exam was diagnostic. Exam performed in department. VL/Carotid Duplex Ultrasound Interpretation Summary Mild (<50%) stenosis right extracranial internal carotid. Mild (<50%) stenosis left extracranial internal carotid. Patent and antegrade vertebrals bilaterally. Ordering Physician: Karlie Mcclain Referring Physician: Karlie Mcclain Performed By: Ronen Brady, RVT 09/20/22 1540 Date Bonilla Mary MD CC: JUAN MANUEL Rodriguez; Dr. Von Gutierrez MD Date Dictated: 09/20/223 Date Transcribed: 09/20/221539 Manager Night: Signed Normal [facility] Absolute lymphocyte countOrd ered By: Dr. Mary on 03-15-2022 Lymphocytes Auto (Unsp spec) [#/Vol] 1.45 10*3/uL 0.83-4.51 [facility] Basophil percentageOrdered B y: Dr. Mary on 03-15-2022 Basophils/100 WBC (Bld) 0.7 % 0-1 [facility] Chloride [Moles/Vol] 111 mmol/L 98-107 [facility] Eosinophils/100 WBC (Bld) 3.3 % 0-5 [facility] Glucose [Mass/Vol] 92 mg/dL 74-106 [facility] Neutrophils (Bld) [#/Vol] 4.7 10*3/uL 2.0-7.7 [facility] Neutrophils/100 WBC (Bld) 66.4 % 47-70 [facility] Potassium [Moles/Vol] 3.6 mmol/L 3.5-5.1 [facility] Sodium [Moles/Vol] 141 mmol/L 136-145 [facility] WBC (Bld) [#/Vol] 7.1 10*3/uL 4.4-11.0 [facility] Blood erythrocytes count (nu mber/volume)Ordered By: Dr. Mary on 03-15-2022 RBC (Bld) [#/Vol] 3.28 10*6/uL 4.2-5.4 [facility] Blood hemoglobin measurement (mass/volume)Ordered By: Dr. Mary on 03-15-2022 Hemoglobin (Bld) [Mass/Vol] 10.4 g/dL 12.0-15.0 [facility] Blood lymphocytes/100 leukoc ytesOrdered By: Dr. Mary on 03-15-2022 Lymphocytes/100 WBC (Bld) 20.5 % 19-41 [facility] Blood monocytes/100 leukocyt esOrdered By: Dr. Mary on 03-15-2022 Monocytes/100 WBC (Bld) 8.8 % 0-10 [facility] Blood platelet mean volumeOr dered By: Dr. Mary on 03-15-2022 Platelet mean volume (Bld) [Entitic vol] 10.0 fL 6.2-12.0 [facility] Determination of erythrocyte mean corpuscular volume (MCV)Ordered By: Dr. Mary on 03-15-2022 MCV (RBC) [Entitic vol] 95.4 fL 81-99 [facility] Hematocrit Auto (Bld) [Volum e fraction]Ordered By: Dr. Mary on 03-15-2022 Hematocrit (Bld) [Volume fraction] 31.3 % 37-47 [facility] Laboratory - Chemistry and C hemistry - challengeOrdered By: Dr. Mary on 03-15-2022 CO2 [Moles/Vol] 25.0 mmol/L 21.0-32.0 [facility] Urea nitrogen/Creatinine [Mass ratio] 17.5 mg/mg 10-20 [facility] Laboratory - Hematology and Cell countsOrdered By: Dr. Mary on 03-15-2022 Erythrocyte distribution width (RBC) [Entitic vol] 49.9 fL 35.1-43.9 [facility] Erythrocyte distribution width (RBC) [Ratio] 14.1 % 11.6-14.6 [facility] Immature granulocytes/100 WBC (Bld) 0.300 % 0.0-0.9 [facility] Comment on above: IG% - Immature Granu locytes (promyelocytes, myelocytes and metamyelocytes) > 1% indicates that a LEFT SHIFT is Present. MCH (RBC) [Entitic mass] 31.7 pg 27.0-32.0 [facility] Nucleated RBC/100 WBC (Bld) [Ratio] 0 % 0-5 [facility] MCHC Auto (RBC) [Mass/Vol]Or dered By: Dr. Mary on 03-15-2022 MCHC (RBC) [Mass/Vol] 33.2 g/dL 32-36 [facility] No Panel InformationOrdered By: Dr. Mary on 03-15-2022 Estimated Creatinine Clearance Calc 41.30 ml/min [facility] Estimated GFR (MDRD) Amer 117 mL/min >60 [facility] Comment on above: GFR Calc Estimated GFR (MDRD) Non-Af Amer 96 mL/min >60 [facility] Comment on above: Non- GFR Calc Platelets bldOrdered By: Dr. Mary on 03-15-2022 Platelets (Bld) [#/Vol] 218 10*3/uL 150-450 [facility] Serum or plasma calcium ivory urement (mass/volume)Ordered By: Dr. Mary on 03-15-2022 Calcium [Mass/Vol] 7.9 mg/dL 8.5-10.1 [facility] Serum or plasma creatinine m easurement (mass/volume)Ordered By: Dr. Mary on 03-15-2022 Creatinine [Mass/Vol] 0.63 mg/dL 0.55-1.02 [facility] Comment on above: The validity of the calculated GFR & GFRAA in patients over 70 years has not been determined. Clinical correlation is essential. Serum or plasma urea nitroge n measurement (mass/volume)Ordered By: Dr. Mary on 03-15-2022 Urea nitrogen [Mass/Vol] 11 mg/dL 7-18 [facility] Thin prep Papanicolaou smear with manual screeningOrdered By: Dr. Mary on 03-15-2022 Thin prep Papanicolaou smear with manual screening 5 5-15 [facility] No Panel InformationOrdered By: Dr. Mary on 03-14-2022 Activated Clotting Time 348 sec 74-137 [facility] Absolute lymphocyte countOrd ered By: Dr. Lehman on 02-20-2022 Lymphocytes Auto (Unsp spec) [#/Vol] 1.76 10*3/uL 0.83-4.51 [facility] Basophil percentageOrdered B y: Dr. Lehman on 02-20-2022 Basophils/100 WBC (Bld) 0.8 % 0-1 [facility] Bilirubin [Mass/Vol] 0.30 mg/dL 0.20-1.00 [facility] Comment on above: For patients on eltr ombopag therapy, use of Dimension [place] TBIL is not recommended. Chloride [Moles/Vol] 106 mmol/L 98-107 [facility] Cholesterol [Mass/Vol] 225 mg/dL <200 [facility] Comment on above: <200 mg/dL Desirable 200-240 mg/dL Borderline >240 mg/dL High Risk Eosinophils/100 WBC (Bld) 1.4 % 0-5 [facility] Glucose [Mass/Vol] 99 mg/dL 74-106 [facility] Neutrophils (Bld) [#/Vol] 2.7 10*3/uL 2.0-7.7 [facility] Neutrophils/100 WBC (Bld) 52.4 % 47-70 [facility] Potassium [Moles/Vol] 4.1 mmol/L 3.5-5.1 [facility] Protein [Mass/Vol] 6.8 g/dL 6.4-8.2 [facility] Sodium [Moles/Vol] 139 mmol/L 136-145 [facility] Triglyceride [Mass/Vol] 211 mg/dL <199 [facility] Comment on above: The drugs N-Acetylcy steine and Metamizole may falsely depress this assay.Serum Triglycerides Reference Interval Normal <150 mg/dL Borderline high 150 - 199 mg/dL High 200 - 499 mg/dL Very High > or = 500 mg/dL WBC (Bld) [#/Vol] 5.1 10*3/uL 4.4-11.0 [facility] Blood erythrocytes count (nu mber/volume)Ordered By: Dr. Lehman on 02-20-2022 RBC (Bld) [#/Vol] 4.32 10*6/uL 4.2-5.4 [facility] Blood hemoglobin measurement (mass/volume)Ordered By: Dr. Lehman on 02-20-2022 Hemoglobin (Bld) [Mass/Vol] 13.5 g/dL 12.0-15.0 [facility] Blood lymphocytes/100 leukoc ytesOrdered By: Dr. Lehman on 02-20-2022 Lymphocytes/100 WBC (Bld) 34.6 % 19-41 [facility] Blood monocytes/100 leukocyt esOrdered By: Dr. Lehman on 02-20-2022 Monocytes/100 WBC (Bld) 10.6 % 0-10 [facility] Blood platelet mean volumeOr dered By: Dr. Lehman on 02-20-2022 Platelet mean volume (Bld) [Entitic vol] 9.8 fL 6.2-12.0 [facility] Determination of erythrocyte mean corpuscular volume (MCV)Ordered By: Dr. Lehman on 02-20-2022 MCV (RBC) [Entitic vol] 95.4 fL 81-99 [facility] Hematocrit Auto (Bld) [Volum e fraction]Ordered By: Dr. Lehman on 02-20-2022 Hematocrit (Bld) [Volume fraction] 41.2 % 37-47 [facility] INR in Blood by Coagulation assayOrdered By: Dr. Lehman on 02-20-2022 INR Coag (Bld) [Relative time] 1.1 {INR} [facility] Laboratory - Chemistry and C hemistry - challengeOrdered By: Dr. Lehman on 02-20-2022 ALP [Catalytic activity/Vol] 60 U/L 45-117 [facility] ALT [Catalytic activity/Vol] 23 U/L 13-56 [facility] CO2 [Moles/Vol] 25.0 mmol/L 21.0-32.0 [facility] Globulin (S) [Mass/Vol] 4.0 g/dL 2.2-4.2 [facility] Urea nitrogen/Creatinine [Mass ratio] 16.5 mg/mg 10-20 [facility] Laboratory - CoagulationOrde red By: Dr. Lehman on 02-20-2022 PT Coag (PPP) [Time] 13.4 s 11.7-14.9 [facility] Laboratory - Hematology and Cell countsOrdered By: Dr. Lehman on 02-20-2022 Erythrocyte distribution width (RBC) [Entitic vol] 49.3 fL 35.1-43.9 [facility] Erythrocyte distribution width (RBC) [Ratio] 14.1 % 11.6-14.6 [facility] Immature granulocytes/100 WBC (Bld) 0.200 % 0.0-0.9 [facility] Comment on above: IG% - Immature Granu locytes (promyelocytes, myelocytes and metamyelocytes) > 1% indicates that a LEFT SHIFT is Present. MCH (RBC) [Entitic mass] 31.3 pg 27.0-32.0 [facility] Nucleated RBC/100 WBC (Bld) [Ratio] 0 % 0-5 [facility] MCHC Auto (RBC) [Mass/Vol]Or dered By: Dr. Lehman on 02-20-2022 MCHC (RBC) [Mass/Vol] 32.8 g/dL 32-36 [facility] No Panel InformationOrdered By: Dr. Lehman on 02-20-2022 Estimated Creatinine Clearance Calc 46.71 ml/min [facility] Estimated GFR (MDRD) Amer 83 mL/min >60 [facility] Comment on above: GFR Calc Estimated GFR (MDRD) Non-Af Amer 68 mL/min >60 [facility] Comment on above: Non- GFR Calc Thyroid Stimulating Hormone (TSH) 1.62 uIU/mL 0.358-3.74 [facility] Platelets bldOrdered By: Dr. Lehman on 02-20-2022 Platelets (Bld) [#/Vol] 235 10*3/uL 150-450 [facility] Serum or plasma albumin ivory urement (mass/volume)Ordered By: Dr. Lehman on 02-20-2022 Albumin [Mass/Vol] 2.8 g/dL 3.2-5.0 [facility] Serum or plasma albumin/glob ulin mass ratioOrdered By: Dr. Lehman on 02-20-2022 Albumin/Globulin [Mass ratio] 0.7 {ratio} 0.9-2.4 [facility] Serum or plasma calcium ivory urement (mass/volume)Ordered By: Dr. Lehman on 02-20-2022 Calcium [Mass/Vol] 8.6 mg/dL 8.5-10.1 [facility] Serum or plasma cholesterol in HDL measurement (mass/volume)Ordered By: Dr. Lehman on 02-20-2022 Cholesterol in HDL [Mass/Vol] 43 mg/dL >40 [facility] Comment on above: The drugs N-Acetylcy steine and Metamizole may falsely depress this assay. Reference Range HDL <40 mg/dL Low HDL Cholesterol HDL >or= 60 mg/dL High HDL Cholesterol Serum or plasma cholesterol in VLDL measurement (mass/volume)Ordered By: Dr. Lehman on 02-20-2022 Cholesterol in VLDL [Mass/Vol] 42 mg/dL 5-40 [facility] Serum or plasma creatinine m easurement (mass/volume)Ordered By: Dr. Lehman on 02-20-2022 Creatinine [Mass/Vol] 0.85 mg/dL 0.55-1.02 [facility] Comment on above: The validity of the calculated GFR & GFRAA in patients over 70 years has not been determined. Clinical correlation is essential. Serum or plasma low density lipoprotein (LDL) cholesterol measurement (mass/volume)Ordered By: Dr. Lehman on 02-20-2022 Cholesterol in LDL [Mass/Vol] 140 mg/dL 0-130 [facility] Serum or plasma urea nitroge n measurement (mass/volume)Ordered By: Dr. Lehman on 02-20-2022 Urea nitrogen [Mass/Vol] 14 mg/dL 7-18 [facility] Thin prep Papanicolaou smear with manual screeningOrdered By: Dr. Lehman on 02-20-2022 Thin prep Papanicolaou smear with manual screening 14 U/L 15-37 [facility] Thin prep Papanicolaou smear with manual screening 8 5-15 [facility] Absolute lymphocyte counton 02-19-2022 Lymphocytes Auto (Unsp spec) [#/Vol] 1.62 10*3/uL 0.83-4.51 [facility] Work Phone: Basophil percentageon 2022 Basophils/100 WBC (Bld) 0.7 % 0-1 [facility] Work Phone: Chloride [Moles/Vol] 102 mmol/L 98-107 [facility] Work Phone: Eosinophils/100 WBC (Bld) 2.9 % 0-5 [facility] Work Phone: Glucose [Mass/Vol] 103 mg/dL 74-106 [facility] Work Phone: Comment on above: Fasting Glucose resu lt from 100 to 125 mg/dL suggests IMPAIRED HOMEOSTASIS per A.D.A. criteria. Neutrophils (Bld) [#/Vol] 3.3 10*3/uL 2.0-7.7 [facility] Work Phone: Neutrophils/100 WBC (Bld) 55.8 % 47-70 [facility] Work Phone: Potassium [Moles/Vol] 3.9 mmol/L 3.5-5.1 [facility] Work Phone: Comment on above: Slight Hemolysis, Re sult may be falsely increased. Sodium [Moles/Vol] 137 mmol/L 136-145 [facility] Work Phone: WBC (Bld) [#/Vol] 5.9 10*3/uL 4.4-11.0 [facility] Work Phone: Blood erythrocytes count (nu mber/volume)on 02-19-2022 RBC (Bld) [#/Vol] 3.72 10*6/uL 4.2-5.4 [facility] Work Phone: Blood hemoglobin measurement (mass/volume)on 02-19-2022 Hemoglobin (Bld) [Mass/Vol] 11.8 g/dL 12.0-15.0 [facility] Work Phone: Blood lymphocytes/100 leukoc yteson 02-19-2022 Lymphocytes/100 WBC (Bld) 27.3 % 19-41 [facility] Work Phone: Blood monocytes/100 leukocyt eson 02-19-2022 Monocytes/100 WBC (Bld) 13.0 % 0-10 [facility] Work Phone: Blood platelet mean volumeon 02-19-2022 Platelet mean volume (Bld) [Entitic vol] 10.2 fL 6.2-12.0 [facility] Work Phone: Determination of erythrocyte mean corpuscular volume (MCV)on 02-19-2022 MCV (RBC) [Entitic vol] 94.9 fL 81-99 [facility] Work Phone: Glucose Glucometer (BldC) [M ass/Vol]Ordered By: Dr. Light on 02-19-2022 Glucose [Mass/Vol] 103 mg/dL 74-106 [facility] Comment on above: MANAGEMENT OF PATIEN T CARE PER NURSING PROTOCOL Hematocrit Auto (Bld) [Volum e fraction]on 02-19-2022 Hematocrit (Bld) [Volume fraction] 35.3 % 37-47 [facility] Work Phone: INR in Blood by Coagulation assayon 02-19-2022 INR Coag (Bld) [Relative time] 1.1 {INR} [facility] Work Phone: Laboratory - Chemistry and C hemistry - challengeon 02-19-2022 CO2 [Moles/Vol] 28.0 mmol/L 21.0-32.0 [facility] Work Phone: Urea nitrogen/Creatinine [Mass ratio] 19.1 mg/mg 10-20 [facility] Work Phone: Laboratory - CoagulationOrde red By: Dr. Light on 02-19-2022 aPTT Coag (Bld) [Time] 28.1 s 24.1-36.2 [facility] Laboratory - Coagulationon 0 02-19-2022 PT Coag (PPP) [Time] 13.8 s 11.7-14.9 [facility] Work Phone: Laboratory - Hematology and Cell countson 02-19-2022 Erythrocyte distribution width (RBC) [Entitic vol] 48.4 fL 35.1-43.9 [facility] Work Phone: Erythrocyte distribution width (RBC) [Ratio] 13.9 % 11.6-14.6 [facility] Work Phone: Immature granulocytes/100 WBC (Bld) 0.300 % 0.0-0.9 [facility] Work Phone: Comment on above: IG% - Immature Granu locytes (promyelocytes, myelocytes and metamyelocytes) > 1% indicates that a LEFT SHIFT is Present. MCH (RBC) [Entitic mass] 31.7 pg 27.0-32.0 [facility] Work Phone: Nucleated RBC/100 WBC (Bld) [Ratio] 0 % 0-5 [facility] Work Phone: MCHC Auto (RBC) [Mass/Vol]on 02-19-2022 MCHC (RBC) [Mass/Vol] 33.4 g/dL 32-36 [facility] Work Phone: No Panel Informationon 02-19 Estimated Creatinine Clearance Calc 46.41 ml/min [facility] Work Phone: Estimated GFR (MDRD) Amer 78 mL/min >60 [facility] Work Phone: Comment on above: GFR Calc Estimated GFR (MDRD) Non-Af Amer 65 mL/min >60 [facility] Work Phone: Comment on above: Non- GFR Calc No Panel InformationOrdered By: Dr. Light on 02-19-2022 Troponin I High Sensitivity 6 pg/mL 3.0-54.0 [facility] Comment on above: Please Note: New Dea t Units and Gender Specific Reference Ranges. For more information see Policy Stat Procedure [place] High Sensitivity Troponin (TNIH) and attachments. Platelets bldon 02-19-2022 Platelets (Bld) [#/Vol] 231 10*3/uL 150-450 [facility] Work Phone: Serum or plasma calcium ivory urement (mass/volume)on 02-19-2022 Calcium [Mass/Vol] 8.1 mg/dL 8.5-10.1 [facility] Work Phone: Serum or plasma creatinine m easurement (mass/volume)on 02-19-2022 Creatinine [Mass/Vol] 0.89 mg/dL 0.55-1.02 [facility] Work Phone: Comment on above: The validity of the calculated GFR & GFRAA in patients over 70 years has not been determined. Clinical correlation is essential. Serum or plasma urea nitroge n measurement (mass/volume)on 02-19-2022 Urea nitrogen [Mass/Vol] 17 mg/dL 7-18 [facility] Work Phone: Thin prep Papanicolaou smear with manual screeningon 02-19-2022 Thin prep Papanicolaou smear with manual screening 7 5-15 [facility] Work Phone: Vital Signs Date Time Vital Sign Value Performing Clinician Faci lity 10-21-2024 09:32-0400 Body temperature 98.1 [degF] Dr. Von Gutierrez MD Work Phone: [facility] 10-21-2024 09:32-0400 Body weight 77.[address] Von Gutierrez MD Work Phone: [facility] 10-21-2024 09:32-0400 Diastolic blood pressure 75 mm[Hg] Dr. Von Gutierrez MD Work Phone: [facility] 10-21-2024 09:32-0400 Heart rate 67 /min Dr. Von Gutierrez MD Work Phone: [facility] 10-21-2024 09:32-0400 SaO2% (BldA) [Mass fraction] 94 % Dr. Von Gutierrez MD Work Phone: [facility] 10-21-2024 09:32-0400 Systolic blood pressure 117 mm[Hg] Dr. Von Gutierrez MD Work Phone: [facility] 03-27-2022 15:09-0500 Body temperature 98 [degF] Dr. Stefan Light Work Phone: [facility] 03-27-2022 15:09-0500 Body weight 75.[address] Stefan Light Work Phone: 7(802)541-550047 [place] [address] 03-27-2022 15:09-0500 Diastolic blood pressure 73 mm[Hg] Dr. Stefan Light Work Phone: 9(341)144-063447 [place] [address] 03-27-2022 15:09-0500 Heart rate 67 /min Dr. Stefan Light Work Phone: 1(491)857-906147 [place] [address] 03-27-2022 15:09-0500 Respiratory rate 18 /min Dr. Stefan Light Work Phone: 4(257)017-330347 [place] [address] 03-27-2022 15:09-0500 SaO2% (BldA) [Mass fraction] 97 % Dr. Stefan Light Work Phone: 1(352)784-921347 [place] [address] 03-27-2022 15:09-0500 Systolic blood pressure 130 mm[Hg] Dr. Stefan Light Work Phone: 5(937)790-669947 [place] [address] 03-15-2022 18:29-0500 Body temperature 97.1 [degF] Dr. Stefan Light Work Phone: 9(241)081-089947 [place] [address] 03-15-2022 18:29-0500 Diastolic blood pressure 52 mm[Hg] Dr. Stefan Light Work Phone: 1(125)367-685947 [place] [address] 03-15-2022 18:29-0500 Heart rate 59 /min Dr. Stefan Light Work Phone: 4(475)669-294547 [place] [address] 03-15-2022 18:29-0500 Respiratory rate 16 /min Dr. Stefan Light Work Phone: 5(450)966-785147 [place] [address] 03-15-2022 18:29-0500 SaO2% (BldA) [Mass fraction] 96 % Dr. Stefan Light Work Phone: 4(473)680-777447 [place] [address] 03-15-2022 18:29-0500 Systolic blood pressure 97 mm[Hg] Dr. Stefan Light Work Phone: 4(074)762-982747 [place] [address] 03-15-2022 09:44-0500 Body height 167.[address] Stefan Light Work Phone: 8(056)510-981247 [place] [address] 03-15-2022 09:44-0500 Body weight 78.[address] Stefan Light Work Phone: 9(617)865-532547 [place] [address] 03-14-2022 12:41-0500 Body mass index (BMI) [Ratio] 27.9 kg/m2 Dr. Stefan Light Work Phone: 8(143)157-473247 [place] [address] 03-02-2022 14:41-0500 Body mass index (BMI) [Ratio] 27.6 kg/m2 Dr. Stefan Light Work Phone: 8(583)120-582691 [place] [address] 03-02-2022 14:41-0500 Body weight 75.[address] Stefan Light Work Phone: 3(262)125-343747 [place] [address] 03-02-2022 14:41-0500 Diastolic blood pressure 70 mm[Hg] Dr. Stefan Light Work Phone: 8(632)909-386191 [place] [address] 03-02-2022 14:41-0500 Heart rate 68 /min Dr. Stefan Light Work Phone: 4(698)901-959147 [place] [address] 03-02-2022 14:41-0500 Respiratory rate 18 /min Dr. Stefan Light Work Phone: 9(727)334-964447 [place] [address] 03-02-2022 14:41-0500 Systolic blood pressure 110 mm[Hg] Dr. Stefan Light Work Phone: 4(365)548-458847 [place] [address] 02-27-2022 10:18-0500 Body temperature 98.2 [degF] Dr. Stefan Light Work Phone: 4(120)858-329147 [place] [address] 02-27-2022 10:18-0500 Diastolic blood pressure 69 mm[Hg] Dr. Stefan Light Work Phone: 9(456)358-785547 [place] [address] 02-27-2022 10:18-0500 Heart rate 60 /min Dr. Stefan Light Work Phone: 4(150)556-779647 [place] [address] 02-27-2022 10:18-0500 Respiratory rate 18 /min Dr. Stefan Light Work Phone: [facility] 02-27-2022 10:18-0500 SaO2% (BldA) [Mass fraction] 95 % Dr. Stefan Light Work Phone: 8(150)357-735847 [place] [address] 02-27-2022 10:18-0500 Systolic blood pressure 115 mm[Hg] Dr. Stefan Light Work Phone: 9(394)912-680236 [address] 02-20-2022 15:00-0500 Body temperature 97.7 [degF] Dr. Stefan Light Work Phone: 0(005)076-065847 [place] [address] 02-20-2022 15:00-0500 Diastolic blood pressure 53 mm[Hg] Dr. Stefan Light Work Phone: 1(045)522-226447 [place] [address] 02-20-2022 15:00-0500 Heart rate 65 /min Dr. Stefan Light Work Phone: 8(209)550-618647 [place] [address] 02-20-2022 15:00-0500 Respiratory rate 18 /min Dr. Stefan Light Work Phone: 4(861)290-994236 [address] 02-20-2022 15:00-0500 SaO2% (BldA) [Mass fraction] 95 % Dr. Stefan Light Work Phone: 5(549)135-168747 [place] [address] 02-20-2022 15:00-0500 Systolic blood pressure 127 mm[Hg] Dr. Stefan Light Work Phone: 0(285)567-041947 [place] [address] 02-19-2022 14:54-0500 Body height 165.[address] Stefan Light Work Phone: 3(259)030-366847 [place] [address] Work Phone: 02-19-2022 14:54-0500 Body weight 76.[address] Stefan Light Work Phone: 6(699)657-755747 [place] [address] 02-19-2022 13:46-0500 Body mass index (BMI) [Ratio] 28 kg/m2 Dr. Stefan Light Work Phone: 0(984)922-177747 [place] [address] 02-19-2022 10:04-0500 Body temperature 97.6 [degF] [facility] Work Phone: 02-19-2022 10:04-0500 Diastolic blood pressure 73 mm[Hg] [facility] Work Phone: 02-19-2022 10:04-0500 Heart rate 59 /min [facility] Work Phone: 02-19-2022 10:04-0500 Respiratory rate 18 /min [facility] Work Phone: 02-19-2022 10:04-0500 SaO2% (BldA) [Mass fraction] 96 % [facility] Work Phone: 02-19-2022 10:04-0500 Systolic blood pressure 138 mm[Hg] [facility] Work Phone: 02-19-2022 08:40-0500 Body height 167.64 cm [facility] Work Phone: 02-19-2022 08:40-0500 Body mass index (BMI) [Ratio] 27.8 kg/m2 [facility] Work Phone: 02-19-2022 08:40-0500 Body weight 78.2 kg [facility] Work Phone: Encounters Encounter Date Encounter Type Care Provider Facility Start: 10-21-2024 End: 10-21-[address] Von Gutierrez MD Work Phone: -[facility] Start: 10-21-2024 End: 10-21-2024 Patient encounter procedure Serjio ZAMBRANO -[facility] Work Phone: Start: 08-25-2024 End: 08-25-2024 ambulatory VON GUTIERREZ Navi [facility] Start: 05-30-2023 End: 05-30-2023 ambulatory Von Gutierrez Facility:[facility] Start: 04-29-2023 ambulatory Karlie Moncada Facility:[facility] Start: 04-29-2023 Non-patient / Non-visit Dr. Rubi Gutierrez Work Phone: [facility] Start: 04-29-2023 End: 04-29-[address] Von Gutierrez Work Phone: [facility] Work Phone: Start: 04-29-2023 End: 04-29-[address] [facility] Work [facility]: Start: 09-20-[address] [facility] Facility:[facility] Start: 09-20-2022 Non-patient / Non-visit Dr. Rubi Gutierrez Work Phone: [facility] Start: 09-20-2022 End: 09-20-[address] Von Gutierrez Work Phone: [facility] Work Phone: Start: 09-20-2022 End: 09-20-[address] Von [facility]rez [facility] Work Phone: Start: 04-12-2022 Non-patient / Non-visit Dr. Jack Light Work Phone: [facility] Start: 04-12-2022 End: 04-12-[address] Stefan Light Work Phone: [facility] Work Phone: Start: 04-12-2022 End: 04-12-[address] Stefan Light [facility] Start: 03-27-2022 End: 03-27-[address] Stefan Light Work Phone: [facility] Start: 03-15-2022 Non-patient / Non-visit Dr. Jack Light Work Phone: [facility] Start: 03-14-2022 Non-patient / Non-visit Dr. Jack Light Work Phone: [facility] Start: 03-14-2022 End: 03-15-2022 Evaluation and management of inpatient Dr. Stefan Light Work Phone: 2(964)234-423647 [place] [address]-Intensive Care Unit Start: 03-02-2022 End: 03-02-2022 Admission to same day surgery center Dr. Stefan Light Work Phone: 9(777)517-776036 [address] Start: 03-02-2022 End: 03-02-[address] Stefan Light Work Phone: 6(598)265-321707 [place] [address] [facility] Start: 03-01-[address] Stefan Light Work Phone: 4(702)476-312647 [place] [address] Start: 02-27-2022 End: 02-27-[address] Stefan Light Work Phone: [facility] Start: 02-20-2022 Non-patient / Non-visit Dr. Jack Light Work Phone: [facility] Start: 02-20-2022 Non-patient / Non-visit Dr. Jack Light Work Phone: [facility] Start: 02-19-2022 Non-patient / Non-visit Dr. Jack Light Work Phone: [facility] Start: 02-19-2022 End: 02-20-2022 [facility] Procedures Date Procedure Procedure Detail Performing Clinician Start: 08-25-2024 Urinalysis VON COCHRAN AN Comment on above: Result Comment: URIN ALYSIS Performed By: #### 2 [id number] #### [facility],[address] [address] Start: 03-14-[address] Stefan Light Work Phone: Start: 02-19-2022 MRI of brain without contrast Dr. Stefan Light Work Phone: Start: 02-19-2022 CT angiography of he ad and neck Start: 02-19-2022 CT of head without contrast Start: 02-19-2022 Plain chest X-ray Plan of Treatment Date Care Activity Detail Author Start: 03-15-2022 Patient discharge [facility] Start: 03-15-2022 [facility] Start: 03-14-2022 Application of intermittent pneumatic compression device [facility] Start: 03-14-2022 Following clinical pathway protocol [facility] Start: 03-14-2022 Ambulation without limitation [facility] Start: 03-14-2022 Assessment of risk of venous thromboembolism [facility] Start: 03-14-2022 Bedrest [facility] Start: 03-14-2022 Catheterization of vein [facility] Start: 03-14-2022 Continuous pulse oximetry [facility] Start: 03-14-2022 Deep breathing and coughing exercises [facility] Start: 03-14-2022 Elevation of head of bed [facility] Start: 03-14-2022 Incentive spirometry [facility] Start: 03-14-2022 Insertion of catheter into peripheral vein [facility] Start: 03-14-2022 Measuring intake and output [facility] Start: 03-14-2022 Notification of physician [facility] Start: 03-14-2022 Oxygen therapy [facility] Start: 03-14-2022 Patient referral to dietitian [facility] Start: 03-14-2022 Providing care according to standard [facility] Start: 03-14-2022 Provision of activity privileges [facility] Start: 03-14-2022 Referral to occupational therapist [facility] Start: 03-14-2022 Referral to service [facility] Start: 03-14-2022 Vital signs measurements [facility] Start: 03-14-2022 [facility] Start: 03-14-2022 Admission procedure [facility] Start: 03-14-2022 Carotid endarterectomy Carotid Endarterectomy (Left) [facility] Start: 02-20-2022 Patient discharge [facility] Start: 02-20-2022 Inhalation therapy procedure [facility] Start: 02-19-2022 Referral to vascular surgeon [facility] Start: 02-19-2022 End: 02-19-2022 Following clinical pathway protocol [facility] Start: 02-19-2022 Assessment of risk of venous thromboembolism [facility] Start: 02-19-2022 Cardiac monitoring [facility] Start: 02-19-2022 Continuous pulse oximetry [facility] Start: 02-19-2022 Elevation of head of bed [facility] Start: 02-19-2022 Exercises [facility] Start: 02-19-2022 Implementation of planned interventions [facility] Start: 02-19-2022 Incentive spirometry [facility] Start: 02-19-2022 Insertion of catheter into peripheral vein [facility] Start: 02-19-2022 Notification of physician [facility] Start: 02-19-2022 Oxygen therapy [facility] Start: 02-19-2022 Patient referral to dietitian [facility] Start: 02-19-2022 Providing care according to standard [facility] Start: 02-19-2022 Provision of activity privileges [facility] Start: 02-19-2022 Referral to occupational therapist [facility] Start: 02-19-2022 Referral to service [facility] Start: 02-19-2022 Tobacco use cessation education [facility] Start: 02-19-2022 [facility] Start: 02-19-2022 Admission procedure [facility] Start: 02-19-2022 Oxygen therapy [facility] Work Phone: Start: 02-19-2022 [facility] Patient referral [facility] Work Phone: [place] Carotid arteries [facility] Immunizations Immunization Date Immunization Notes Care Provider Fa cility 02-20-2022 influenza, injectabl e, quadrivalent, preservative free Dr. Von Gutierrez Work Phone: [facility] 02-20-2022 influenza, seasonal, injectable Dr. Stefan Light Work Phone: [facility] 01-25-2021 Covid (Pfizer) Dr. Stefan rudd Work Phone: [facility] 12-28-2020 Covid (Pfizer) Dr. Stefan Walters drus Work Phone: [facility] Payers Date Payer Category Payer Self-pay [id number] 2022 Unknown [id number] Unknown [facility] [employer] . [id number] Unknown [id number] Unknown [id number] [id number] Unknown [id number] [id number] Unknown [id number] [id number] Social History Date Type Detail Facility Start: 02-19-2022 End: 03-14-2022 Tobacco smoking status NHIS Unknown if ever smoked [facility] Start: 1940 Sex Assigned At Female [facility] Start: 02-20-2022 Non-smoker [facility] Start: 03-14-2022 Tobacco smoking status NHIS Never smoked tobacco (finding) [facility] NEGATED: Highlighted row [facility] Medical Equipment Procedure Code Equipment Code Equipment Origin al Text Equipment Identifier Dates Bare-metal carot id artery stent [id number] FDA Start: 03-14-2022 SUTURE,LIGA CLIP MED [id number] FDA Start: 03-14-2022 SUTURE,LIGA CLIP SM LT-[id number] FDA Start: 03-14-2022 SUTURE,LIGA CLIP MED [id number] FDA Start: 03-14-2022 SUTURE,LIGA CLIP SM [id number] FDA Start: 03-14-2022 SUTURE,LIGA CLIP MED [id number] FDA Start: 03-14-2022 SUTURE,LIGA CLIP SM [id number] FDA Start: 03-14-2022 Goals Date Patient Goal Desired Activity /State Functional Status Date Assessment Result Facility 03-15-2022 Functional status [facility] Work Phone: 02-20-2022 Functional status Ambulates [facility] Work Phone: Mental Status Date Assessment Result Facility 03-15-2022 Cognitive function Voice/Name [facility] Work Phone: 02-20-2022 Cognitive function Voice/Name [facility] Work Phone: 02-19-2022 Cognitive function Voice/Name [facility] Work Phone: Progress note 03-15-2022 Note Date & Type Note Facility 03-15-2022 Progress note Note Date/Time March 15, 2022 4:14pm [facility] Medical Records Department [address] [place] [address] Progress Note - Surgery 03/15/22 1610 MR#: [id number] Acct: [id number] Name: NATALY MARTINEZ Rep #:[id number] : 1940 81 From: Bonilla Mary MD PCP: Dr. Von Gutierrez MD Status:ADM I N Location: ICU CVICU20 3-1 Subjective Subjective No issues overnight. Jace diet, no N/V, up to chair. No numbness/weakness/vision loss/speech difficulty. Pain well controlled. Objective Data Objective Data Vital Signs: Vital Signs Temp Pulse Resp BP Pulse Ox O2 Del Method 97.1 F L 72 16 93/55 L 96 Room Air 03/15/22 16:00 03/15/22 16:00 03/15/22 16:00 03/15/22 16:00 03/15/22 16:00 03/15/22 16:00 Oxygen Delivery Method Room Air Weight: 173 lb 11.588 oz Body Mass Index (BMI) 27.9 Intake & Output: Intake and Output for Last 24 Hours 03/13/22 03/14/22 03/15/22 23:59 23:59 23:59 Intake Total 238 / 238 2363.75 / 2363.75 Output Total 180 / 390 1825 / 1825 Balance 58 / -152 538.75 / 538.75 Lab / Micro Data Result Diagrams: 03/15/22 05:15 03/15/22 05:15 Labs: Laboratory Results - last 24 hr 03/14/22 08:30: Activated Clotting Time 155 H 03/14/22 10:30: Activated Clotting Time 215 H 03/14/22 10:40: Activated Clotting Time 395 H 03/14/22 11:25: Activated Clotting Time 348 H 03/15/22 05:15: WBC 7.1, RBC 3.28 L, Hgb 10.4 L, Hct 31.3 L, MCV 95.4, MCH 31.7,MCHC 33.2, RDW Std Deviation 49.9 H, RDW Coeff of Bettye 14.1, Plt Count 218, MPV 10.0, Immature Gran % (Auto) 0.300, Neut % (Auto) 66.4, Lymph % (Auto) 20.5, [place] % (Auto) 8.8, Eos % (Auto) 3.3, Baso % (Auto) 0.7, Absolute Neuts (auto) 4.7, Absolute Lymphs (auto) 1.45, Nucleated RBC % 0 03/15/22 05:15: Sodium 141, Potassium 3.6, Chloride 111 H, Carbon Dioxide 25.0, Anion Gap 5, BUN 11, Creatinine 0.63, Estim Creat Clear Calc 41.30, Est GFR (MDRD) Af Amer 117, Est GFR (MDRD) Non-Af 96, BUN/Creatinine Ratio 17.5, Hbgrrrh40, Calcium 7.9 L Physical Exam Const alert, oriented x3, no apparent distress and healthy appearing General Appearance: cooperative; Negative for combative or lethargic Orientation / Consciousness: awake Exam Limitations: no limitations HEENT Head and Scalp: normocephalic and atraumatic Eyes EOMs intact bilaterally General Eye: normal appearance of both eyes Neck full ROM General: trachea midline Resp normal respiratory effort and no use of accessory muscles Effort and Inspection: Negative for labored, stridor or audible wheezes Cardio regular rate and regular rhythm Back/Spine Cervical Spine: cervical ROM normal Extremity full ROM, normal capillary refill and no clubbing, cyanosis or edema Skin no rashes or lesions noted Skin Narrative: Inc C/D/I no erythema Neuro oriented x3, CN's II-XII intact bilaterally, no focal motor deficits and no sensory deficits noted Psych thought process normal, cooperative, affect normal, speech normal and activity/motor behavior normal 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 03/15/22 1614 <Electronically signed by Bonilla Mary MD> Cosigner Signature (if applicable): CC: ~ Signed [facility] Work Phone: Procedure note 03-15-2022 Note Date & Type Note Facility 03-15-2022 Procedure note [facility] Evaluation note Note Date & Type Note Facility Evaluation note No assessment information availa ble [facility] Work Phone: Evaluation note Note Date & Type Note Facility Evaluation note Diagnosis Onset Date Acute CVA (cerebrovascular accident) acute Right arm weakness acute Stenosis of left internal ca rotid artery with cerebral infarction acute [facility] Work Phone: Evaluation note Note Date & Type Note Facility Evaluation note Diagnosis Onset Date Acute CVA (cerebrovascular accident) acute Right arm weakness acute Stenosis of left internal ca rotid artery with cerebral infarction chronic Stenosis of left internal ca rotid artery with cerebral infarction chronic Preoperative cardiovascular examination acute Pulmonary HTN acute COPD (chronic obstructive pulmonary disease) chronic Stenosis of left internal ca rotid artery with cerebral infarction chronic Stenosis of left internal ca rotid artery with cerebral infarction chronic [facility] Work Phone: Evaluation note Note Date & Type Note Facility Evaluation note Diagnosis Onset Date Acute CVA (cerebrovascular accident) acute Right arm weakness acute Stenosis of left internal ca rotid artery with cerebral infarction chronic Stenosis of left internal ca rotid artery with cerebral infarction chronic Preoperative cardiovascular examination acute Pulmonary HTN acute COPD (chronic obstructive pulmonary disease) chronic Stenosis of left internal ca rotid artery with cerebral infarction chronic Stenosis of left internal ca rotid artery with cerebral infarction chronic Stenosis of left internal ca rotid artery with cerebral infarction chronic [facility] Work Phone: Evaluation note Note Date & Type Note Facility Evaluation note Diagnosis Onset Date Resolution Urinary tract infection noneactive October 21, 2024 9:09am [facility] Work Phone: Reason for referral (narrative) Note Date & Type Note Facility Reason for referral (narrative) No reason for referral information available [facility] Work Phone: Chief Complaint and Reason for Visit Chief Complaint RIGHT UPPER EXTREMIT Y WEAKNESS Chief Complaint cva RIGHT UPPER EXTREMITY WEAKNESS STROKE R/O cva Reason for Visit Acute CVA (cerebrova scular accident) Right arm weakness 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 Chief Complaint cva RIGHT UPPER EXTREMITY WEAKNESS STROKE R/O cva discuss carotid stent S/P [facility] ED CVA/ SURG CLEARANCE LT CAROTID ARTERY STENT LT CAROTID ARTERY STENT LT CAROTID ARTERY STENT Reason for Visit Acute CVA (cerebrova scular accident) Right arm weakness 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 Preoperative cardiovascular examination Pulmonary HTN COPD (chronic obstructive pulmonary disease) 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 Chief Complaint cva RIGHT UPPER EXTREMITY WEAKNESS STROKE R/O cva discuss carotid stent S/P [facility] ED CVA/ SURG CLEARANCE LT CAROTID ARTERY STENT LT CAROTID ARTERY STENT LT CAROTID ARTERY STENT 2 week fu S/P L CA STENT Reason for Visit Acute CVA (cerebrova scular accident) Right arm weakness 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 Preoperative cardiovascular examination Pulmonary HTN COPD (chronic obstructive pulmonary disease) 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 Chief Complaint S/P LT CAROTID STENT Chief Complaint Cerebral infarction due to unspecified occlusion o Chief Complaint Admit Date Urinary tract infection October 21, 2024 9:09am Reason for Visit Admit Date Urinary tract infection October 21, 2024 9:09am Family History Relationship Condition Age at Onset Recorded Date/T kimmie father Coronary artery disease Unknown mother Congestive heart failure Unknown brother Hypertension Unknown Cardiac disease Unknown Relationship Condition Age at Onset Recorded Date/T kimmie Not Specified High blood cholesterol Unknown Seizure Unknown Malignant neoplasm Unknown father Coronary artery disease Unknown mother Congestive heart failure Unknown brother Hypertension Unknown Cardiac disease Unknown Advance Directives Advance Directive Response Recorded Date/ Time Advance Directives No June 26 9 7:16am Living Will Yes February 19 8:43am Power of Digital Strategy Specialist Yes February 19 023 8:43am Name of Medical Power of Digital Strategy Specialist ANNY SWARTZENT RUBER February 19, 2022 8:43am Advance Directive Response Recorded Date/ Time Name of Medical Power of Digital Strategy Specialist Anny Swartzent ruber February 19, 2022 11:08am Advance Directives No June 26 9 7:16am Living Will Yes February 19 11:08am Power of Digital Strategy Specialist Yes February 19 11:08am Advance Directive Response Recorded Date/ Time Name of Medical Power of Digital Strategy Specialist Anny Swartzent ruber February 19, 2022 11:08am Name of Medical Power of Digital Strategy Specialist Anny Swartzent ruber March 14, 2022 12:41pm Advance Directives No March 13, 2022 8:37am Living Will Yes March 14 12:41pm Power of Digital Strategy Specialist Yes March 14, 2022 12:41pm Advance Directive Response Recorded Date/ Time Advance Directives No March 13, 2022 9:37am Living Will Yes March 14 1:41pm Power of Digital Strategy Specialist Yes March 14, 2022 1:41pm Advance Directive Response Recorded Date/ Time Advance Directives No March 13, 2022 9:37am Summary Purpose Additional Source Comments Goals (unrecognized section and content) Goals may be documented in a n alternate sectionGoals may be documented in an alternate sectionGoals may be documented in an alternate sectionGoals may be documented in an alternate section Care Teams (unrecognized sec tion and content) Team Status: Active Member Role Status Dates Dr. Di Guerra MD Family Provider Active Dr. Von Gutierrez MD Primary Care Provider Active Team Status: Active Member Role Status Dates Dr. Stefan Light DO Emergency Provider Active Dr. Von Gutierrez MD Primary Care Provider Active Dr. Trina Lehman MD Admit Provider, At tending Provider, Other Provider Active Team Status: Active Member Role Status Dates Dr. Von Gutierrez MD Primary Care Provider Active Dr. Sebastian Dooley MD Attending Provider Active Team Status: Active Member Role Status Dates Dr. Stefan Light DO Emergency Provider Active Dr. Von Gutierrez MD Primary Care Provider Active Dr. Trina Lehman MD Admit Provider, Other Provider A ctive Dr. Bonilla Mary MD Attending Provider, Other Provide r Active Team Status: Active Member Role Status Dates Dr. Stefan Light DO Emergency Provider Active Dr. Von Gutierrez MD Primary Care Provider Active Dr. Trina Lehman MD Admit Provider, At tending Provider, Other Provider Active Dr. Bonilla Mary MD Other Provider Active Team Status: Inactive Member Role Status Dates Dr. Von Gutierrez MD Primary Care Provider, Referring Provider Active Dr. Bonilla Mary MD Attending Provider Active Team Status: Inactive Member Role Status Dates Dr. Von Gutierrez MD Primary Care Provider, Referring Provider Active Dr. Slava Leyva MD Attending Provider Active Team Status: Active Member Role Status Dates Dr. Von Gutierrez MD Primary Care Provider Active Dr. Bonilla Mary MD Admit Provider, Attending Provide r, Other Provider Active Team Status: Inactive Member Role Status Dates Dr. Stefan Light DO Emergency Provider Active Dr. Von Gutierrez MD Primary Care Provider Active Dr. Trina Lehman MD Admit Provider, Attending Provid er Active Dr. Bonilla Mary MD Other Provider Active Team Status: Inactive Member Role Status Dates Dr. Von Gutierrez MD Primary Care Provider Active Dr. Bonilla Mary MD Admit Provider, Attending Provide r Active Team Status: Active Member Role Status Dates Dr. Stefan Light DO Emergency Provider Active Dr. Von Gutierrez MD Primary Care Provider Active Dr. Trina Lehman MD Admit Provider, Re ferring Provider, Other Provider Active Dr. Bonilla Mary MD Attending Provider, Other Provide r Active Team Status: Inactive Member Role Status Dates Dr. Von Gutierrez MD Primary Care Provider, Referring Provider Active Karlie cMclain PA, PA Attending Provider Active Team Status: Active Member Role Status Dates Dr. Von Gutierrez MD Primary Care Provider Active Dr. Bonilla Mary MD Attending Provider Active Team Status: Inactive Member Role Status Dates Dr. Von Gutierrez MD Primary Care Provider Active JUAN MANUEL Arizmendi Attending Provider, Referrin g Provider Active Team Status: Inactive Member Role Status Dates Dr. Von Gutierrez MD Primary Care Provider Active JUAN MANUEL Rodriguez Attending Provider, Referring Provider Active Team Status: Inactive Member Role Status Dates Dr. Von Gutierrez MD Primary Care Provider Active JUAN MANUEL Hawkins Attending Provider, Referring Provid er Active Team Status: Active Member Role/Relationship Status Dates Dr. iD Guerra MD Family Provider Active Dr. Von Gutierrez MD Primary Care Provider Active Team Status: Inactive Member Role/Relationship Status Dates Dr. Von Gutierrez MD Primary Care Provider Active Start: October 21, 2024 End: October 21, 2024 Dr. Von Gutierrez MD Referring Provider Active Start: October 21, 2024 End: October 21, 2024 JUAN MANUEL Chen Attending Provider Active Sta rt: October 21, 2024 End: October 21, 2024 INFORMATION SOURCE (unrecogn ized section and content) DATE CREATED AUTHOR 05/30/2023 [facility] DATE CREATED AUTHOR AUTHOR'S ORGANIZ ATION 08/28/2024 [facility] FOR RECORDS PERTAINING TO PATIENTS WHO ARE OR HAVE BEEN ENROLLED IN A CHEMICAL DEPENDENCY/SUBSTANCEABUSE PROGRAM, SOME INFORMATION MAY BE OMITTED. This clinical summary was aggregated from multiple sources. Caution should be exercised in using it in the provision of clinical care. This summary normalizes information from multiple sources, and as a consequence, information in this document may materially change the coding, format and clinical context of patient data. In addition, data may be omitted in some cases. CLINICAL DECISIONS SHOULD BE BASED ON THE PRIMARY CLINICAL RECORDS. [employer] provides no warranty or guarantee of the accuracy or completeness of information in this document.
== END | disposition home or self-care (01) ==
LOC: LABSPEC 16:06
PROVIDERS: PCP Internal Medicine Infectious Disease; Referring Provider Physician Assistant; Visit Provider Physician Assistant
DX: R39.9 Unspecified symptoms and signs involving the genitourinary system (principal)
CPT/HCPCS: 87077; 87086; 87088; 87186